=== PATIENT | female | born 1960 | race Caucasian/White ===

== ENCOUNTER 2017-06-01 13:46 | Inpatient (IN) | payer OTHER ==
--- NOTE | 2017-06-01 14:10 | ER Document Report ---
ED General - General Stated Complaint: RIGHT HIP PAIN NO INJURY Time Seen by Provider: 06/01/17 14:05 Mode of Arrival: Stretcher Information source: Patient Notes: This is a 57-year-old female with a history of coronary artery disease ([place] in the past), TIA 2, cervical cancer (status post chemo and radiation in [place]). Patient is brought in by EMS because of right arm numbness, blurred vision and a 3/5 headache which started at 10 AM. Patient states that the arm numbness and the blurred vision have since resolved. Patient also notes that she has had atraumatic right hip pain for the past month and that she has been dragging her right leg. When asked if she has weakness of the right lower extremity she again says that she has been "dragging it". She is not able to specifically say whether the weakness is solely due to the pain or something else. Patient denies any fever, chills, nausea vomiting. Patient denies any recent falls. TRAVEL OUTSIDE OF THE [place] IN LAST 30 DAYS: No - HPI Onset: Just prior to arrival Onset/Duration: Gradual Quality of pain: No pain Severity: None Pain Level: Denies Associated symptoms: Other - Right hip pain. denies: Chest pain, Fever, Shortness of breath Exacerbated by: Movement Relieved by: Denies Similar symptoms previously: No Recently seen / treated by doctor: No - Related Data Allergies/Adverse Reactions: No Known Allergies Allergy (Verified 08/17/16 15:01) Past Medical History - General Information source: Patient - Social History Smoking Status: Former Smoker Cigarette use (# per day): No Chew tobacco use (# tins/day): No Frequency of alcohol use: None Drug Abuse: None Lives with: Family Family History: Reviewed & Not Pertinent, Arthritis, CAD, Hypertension, Malignancy, Thyroid Disfunction, Other - alzheimers Patient has suicidal ideation: No Patient has homicidal ideation: No - Past Medical History Cardiac Medical History: Reports: Hx Coronary Artery Disease, Hx Heart Attack, Hx Hypercholesterolemia, Hx Hypertension Pulmonary Medical History: Denies: Hx Asthma, Hx COPD Neurological Medical History: Reports: Hx Cerebrovascular Accident - tia - on ASA now Endocrine Medical History: Denies: Hx Diabetes Mellitus Type 1, Hx Diabetes Mellitus Type 2 Malignancy Medical History: Reports: Hx Cervical Cancer GI Medical History: Reports: Hx Gastroesophageal Reflux Disease Musculoskeltal Medical History: Reports Hx Musculoskeletal Trauma Traumatic Medical History: Reports: Hx Fractures Past Surgical History: Reports: Hx Cardiac Catheterization, Hx Gynecologic Surgery - CERVICAL Ca, Hx Orthopedic Surgery - R ankle, L knee - Immunizations Immunizations up to date: Yes Hx Diphtheria, Pertussis, Tetanus Vaccination: Yes - 10/03/13 Review of Systems - Review of Systems Constitutional: denies: Chills, Fever EENT: No symptoms reported Cardiovascular: No symptoms reported Respiratory: No symptoms reported Gastrointestinal: No symptoms reported Genitourinary: No symptoms reported Female Genitourinary: No symptoms reported Musculoskeletal: No symptoms reported Skin: No symptoms reported Hematologic/Lymphatic: No symptoms reported Neurological/Psychological: No symptoms reported Physical Exam - Vital signs Vitals: Temp Pulse Resp BP Pulse Ox 98.3 F 95 20 146/68 H 97 06/01/17 14:00 06/01/17 14:00 06/01/17 14:00 06/01/17 14:00 06/01/17 14:00 Notes: Physical exam: GENERAL: 57-year-old female, alert and oriented 3, appears well. She is smiling and joking in the emergency room. Blood pressure once 46/68, pulse 95, respiratory rate 16 O2 sat 98% on room air. HEAD: Atraumatic, normocephalic. EYES: Pupils equal round and reactive to light, extraocular movements intact, sclera anicteric, conjunctiva are normal. ENT: TMs normal, nares patent, oropharynx clear without exudates. Moist mucous membranes. NECK: Normal range of motion, supple without ovious mass or JVD. LUNGS: Breath sounds clear to auscultation bilaterally and equal. No wheezes rales or rhonchi. HEART: Regular rate and rhythm without murmurs, rubs or gallops. ABDOMEN: Soft, normoactive bowel sounds. No tenderness to palpation. No guarding, no rebound. No masses appreciated. EXTREMITIES: Normal range of motion, no pitting or edema. No clubbing or cyanosis. NEUROLOGICAL: Patient is alert and oriented 3, she is alert and keenly responsive, she does know the month and age, she is able to close and open her eyes and make a fist on command, her horizontal gaze is normal, her visual sampson are intact, there is no facial palsy, motor to the upper extremities show no drift bilaterally, patient does have some drift but does not touch the bed on the right, no drift on the left lower leg, finger to nose is perfect bilaterally, there is no sensory discrepancies or sensory loss, patient is a very good job and picture description, object naming and sentence reading, there is no dysarthria (her speech is clear when naming objects), there is no extinction. Her NIH is therefore 1 based upon a weakness. PSYCH: Normal mood, normal affect. SKIN: Warm, Dry, normal turgor, no rashes or lesions noted. Course - Re-evaluation Re-evalutation: 06/01/17 14:05 NIH score is 1 (due to weakness of the right leg). It is unclear at this point if the weakness is due to pain or to weakness itself. It is also unclear the time of onset given that the patient clearly states that she has been dragging her right foot for the past month. Given this history and the rest of her NIH score, patient does not meet criteria for thrombolytics. - Vital Signs Vital signs: Temp Pulse Resp BP Pulse Ox 97.9 F 86 20 142/73 H 97 06/01/17 20:04 06/01/17 20:04 06/01/17 20:04 06/01/17 20:04 06/01/17 20:04 - Laboratory Result Diagrams: 06/01/17 14:30 06/01/17 14:30 Laboratory results interpreted by me: 06/01/17 06/01/17 14:30 14:30 RBC 3.36 L Hgb 10.3 L Hct 29.5 L RDW 15.5 H Seg Neutrophils % 85.1 H Lymphocytes % 6.3 L Potassium 3.0 L* Creatinine 1.47 H Est GFR ( Amer) 44 L Est GFR (Non-Af Amer) 36 L Glucose 136 H Direct Bilirubin 0.5 H Creatine Kinase < 20 L - EKG Interpretation by Sd EKG shows normal: Sinus rhythm Rate: Normal Rhythm: NSR - EKG shows normal sinus rhythm with a ventricular rate of 99, nonspecific ST changes V4 V5 V6, there is LVH pattern. Critical Care Note - Critical Care Note Total time excluding time spent on procedures (mins): 60 Discharge - Discharge Clinical Impression: Hypokalemia TIA (transient ischemic attack) Qualifiers: Transient cerebral ischemia type: unspecified Qualified Code(s): G45.9 - Transient cerebral ischemic attack, unspecified Condition: Stable Disposition: ADMITTED INPATIENT Admitting Provider: Hospitalist - Dr Hardy Unit Admitted: IMCU
[2017-06-01] MEDS ORDERED: OXYCODONE-ACETAMINOPHEN 5-325 MG TABLET PO ONE (14:33)
[2017-06-01 14:43] LABS: ABSOLUTE EOSINOPHILS # (AUTO) 0.2 10^3/uL (0.0-0.6); ABSOLUTE LYMPHOCYTES (AUTO) 0.5 10^3/uL (0.5-4.7); ABSOLUTE MONOCYTES (AUTO) 0.4 10^3/uL (0.1-1.4); ABSOLUTE NEUT (AUTO) 6.6 10^3/uL (1.7-8.2); BASOPHILS % (AUTO) 0.6 % (0-2); EOSINOPHILS % (AUTO) 2.3 % (0-6); HEMATOCRIT 29.5 % (36.0-47.0); HEMOGLOBIN 10.3 g/dL (12.0-15.5); HGB HCT DIFFERENCE 1.4; LYMPHOCYTES % (AUTO) 6.3 % (13-45); MEAN CORPUSCULAR HEMOGLOBIN 30.6 pg (27.0-33.4); MEAN CORPUSCULAR HGB CONC 34.9 g/dL (32.0-36.0); MEAN CORPUSCULAR VOLUME 88 fl (80-97); MONOCYTES % (AUTO) 5.7 % (3-13); RED BLOOD COUNT 3.36 10^6/uL (3.72-5.28); RED CELL DISTRIBUTION WIDTH 15.5 % (11.5-14.0); SEGMENTED NEUTROPHILS % (AUTO) 85.1 % (42-78); WHITE BLOOD COUNT 7.8 10^3/uL (4.0-10.5)
--- NOTE | 2017-06-01 14:59 | RADIOLOGY REPORT (SQ) ---
EXAM DESCRIPTION: CT HEAD WITHOUT COMPLETED DATE/TIME: 06/01/2017 2:52 pm REASON FOR STUDY: right arm weakness COMPARISON: 06/19/2015 TECHNIQUE: Axial images acquired through the brain without intravenous contrast. Images reviewed wi th bone, brain and subdural windows. Images stored on PACS. All CT scanners at this facility use dose modulation, iterative reconstruction, and/or weight based d osing when appropriate to reduce radiation dose to as low as reasonably achievable (ALARA). [facility]: Dose Right [facility]: CareDose [facility]: Dose Right [facility]: Teradose 4D [facility]: Smart Close RADIATION DOSE: Up-to-date CT equipment and radiation dose reduction techniques were employed. CTDIv ol: 64.6 mGy. DLP: 1163 mGy-cm. mGy. LIMITATIONS: None. FINDINGS: VENTRICLES: Normal size and contour. CEREBRUM: No masses. No hemorrhage. No midline shift. No evidence for acute infarction. Normal gra y/white matter differentiation. No areas of low density in the white matter. CEREBELLUM: No masses. No hemorrhage. No alteration of density. No evidence for acute infarction. EXTRAAXIAL SPACES: No fluid collections. No masses. ORBITS AND GLOBE: No intra- or extraconal masses. Normal contour of globe without masses. CALVARIUM: No fracture. PARANASAL SINUSES: No fluid or mucosal thickening. SOFT TISSUES: No mass or hematoma. OTHER: No other significant finding. IMPRESSION: NORMAL BRAIN CT WITHOUT CONTRAST. COMMENT: Quality ID # [id number]: Final reports with documentation of one or more dose reduction techniques (e.g., Automated exposure control, adjustment of the mA and/or kV according to patient size, use of iterative reconstruction technique) TECHNICAL DOCUMENTATION: JOB ID: [id number] [employer]- All Rights Reserved
[2017-06-01 15:04] LABS: ALANINE AMINOTRANSFERASE 15 U/L (9-52); ALKALINE PHOSPHATASE 116 U/L (38-126); ANION GAP 17 (5-19); ASPARTATE AMINO TRANSFERASE 16 U/L (14-36); BILIRUBIN,DIRECT 0.5 mg/dL (0.0-0.4); BILIRUBIN,TOTAL 0.9 mg/dL (0.2-1.3); BLOOD UREA NITROGEN 15 mg/dL (7-20); CALCIUM 9.9 mg/dL (8.4-10.2); CARBON DIOXIDE 23 mmol/L (22-30); CHLORIDE 101 mmol/L (98-107); CREATININE RESULT 1.47 mg/dL (0.52-1.25); GLUCOSE 136 mg/dL (75-110); SODIUM 140.6 mmol/L (137-145); TOTAL PROTEIN 8.1 g/dL (6.3-8.2)
[2017-06-01 15:05] LABS: CREATINE KINASE < 20 U/L (30-135)
--- NOTE | 2017-06-01 15:09 | RADIOLOGY REPORT (SQ) ---
EXAM DESCRIPTION: CHEST SINGLE VIEW COMPLETED DATE/TIME: 06/01/2017 3:01 pm REASON FOR STUDY: weakness COMPARISON: 09/10/2016 EXAM PARAMETERS: NUMBER OF VIEWS: One view. TECHNIQUE: Single frontal radiographic view of the chest acquired. RADIATION DOSE: NA LIMITATIONS: None. FINDINGS: LUNGS AND PLEURA: No opacities, masses or pneumothorax. No pleural effusion. MEDIASTINUM AND HILAR STRUCTURES: No masses. Contour normal. HEART AND VASCULAR STRUCTURES: Heart normal in size. Normal vasculature. BONES: No acute findings. HARDWARE: None in the chest. OTHER: No other significant finding. IMPRESSION: NO ACUTE RADIOGRAPHIC FINDING IN THE CHEST. TECHNICAL DOCUMENTATION: JOB ID: [id number]
--- NOTE | 2017-06-01 15:10 | RADIOLOGY REPORT (SQ) ---
EXAM DESCRIPTION: HIP RIGHT AP/LATERAL COMPLETED DATE/TIME: 06/01/2017 3:01 pm REASON FOR STUDY: right hip pain COMPARISON: None. NUMBER OF VIEWS: Two views. TECHNIQUE: AP pelvis and additional frog-leg view of the right hip. LIMITATIONS: None. FINDINGS: MINERALIZATION: Normal. RIGHT HIP: Moderate osteoarthritis. No fracture or dislocation. No worrisome bone lesions. LEFT HIP: Mild to moderate osteoarthritis. No fracture or dislocation. No worrisome bone lesions. PUBIS AND ISCHIUM: No fracture. PELVIS: No fracture. SACRUM: No fracture or dislocation. No worrisome bone lesions. LOWER LUMBAR SPINE: Degenerative change without fracture. SOFT TISSUES: No findings. OTHER: No other significant finding. IMPRESSION: OSTEOARTHRITIS OF THE RIGHT GREATER THAN LEFT HIP. NO ACUTE OSSEOUS ABNORMALITY IDENTIF IED. TECHNICAL DOCUMENTATION: JOB ID: [id number] [employer] All Rights Reserved
[2017-06-01 15:21] LABS: CREATINE KINASE MB < 0.22 ng/mL (<4.55); TROPONIN I < 0.012 ng/mL
[2017-06-01] MEDS ORDERED: POTASSIUM CHLORIDE 20 MEQ/15 ML UDCUP PO ONE (15:49)
[2017-06-01] MEDS ORDERED: MAGNESIUM HYDROXIDE SUSP 30 ML UDCUP PO PRN (17:29)
[2017-06-01] MEDS ORDERED: ONDANSETRON HCL INJ/PF 4 MG/2 ML SDV IV PRN (17:29)
[2017-06-01] MEDS ORDERED: DOCUSATE SODIUM 100 MG CAPSULE PO PRN (17:29)
[2017-06-01] MEDS ORDERED: ACETAMINOPHEN 325 MG TABLET PO PRN (17:29)
[2017-06-01] MEDS ORDERED: TEMAZEPAM 15 MG CAPSULE PO PRN (17:29)
--- NOTE | 2017-06-01 17:29 | PDOC H&P ---
History of Present Illness Admission Date/PCP: 06/01/17 16:27 [facility] Patient complains of: Pain, weakness and numbness. History of Present Illness: GURINDER SMART is a 57 year old female who has a prior history of transient ischemic attack 2. In 2012 the patient had a TIA followed by a second event. The events were 1 month apart. She was taking Plavix but has not recently been taking Plavix or aspirin. The patient also notes that she had a myocardial infarction in 2012. She was treated at [facility]. She underwent cardiac catheterization that showed a 50% blockage to 1 of her major arteries. No stent was placed. She is currently not on any cardiac medications. This morning the patient woke up and ate a biscuit at around 730. At 930 she started to feel numb from her right foot to her right hip. This then progressed up to her right hand which progressed to her right shoulder. At the same time the patient started to experience severe pain in her leg. The pain would start at the top of her ankle and then shoot upward into her knee and then into her hip. She also started having pain in her shoulder, arm and hand. The symptoms are on the right. Again, this is associated with numbness. The patient states that her symptoms have been going on for at least one month. Today, her symptoms came on faster and were more severe. She was worried that she was having a severe stroke and that is what prompted her to come to the emergency department. On review of systems she has not had any fevers, chills or night sweats. She states that she is not taking care of herself well. She is not eating well and she may be losing weight but she is not sure. She does get intermittent blurry vision when she is in severe pain. She has no pain or burning in her ears. She has no trouble swallowing or pain with swallowing. She denies shortness of breath or cough. She has not had any recent upper respiratory tract infections. She denies chest pain and palpitations. She denies nausea or vomiting. She has no abdominal pain. Occasionally, she will have diarrhea when she eats something sweet. She denies constipation. She has no new rashes but she does admit to some mosquito bites. She has no swelling of her lower extremities. She has no orthopnea or PND. Past Medical History Cardiac Medical History: Reports: Coronary Artery Disease, Myocardial Infarction , Hyperlipidema, Hypertension Pulmonary Medical History: Denies: Asthma, Chronic Obstructive Pulmonary Disease (COPD) Neurological Medical History: Reports: Other - TIA 2 in 2012. Endocrine Medical History: Denies: Diabetes Mellitus Type 1, Diabetes Mellitus Type 2 Malignancy Medical History: Reports: Cervical Cancer - Patient is status post chemo and radiation and is in remission. GI Medical History: Reports: Gastroesophageal Reflux Disease Past Surgical History Past Surgical History: Reports: Cardiac Catheterization, Orthopedic Surgery - R ankle, L knee, Other - Orthosis surgeries include right ankle and left knee. Social History Smoking Status: Former Smoker Frequency of Alcohol Use: None Hx Recreational Drug Use: No Drugs: None Hx Prescription Drug Abuse: No - Advance Directive Surrogate healthcare decision maker:: The patient would like her twin sister Barbara Artis to be her decision maker should she become incapacitated. Her sister lives in [place] and can be reached at area code [phone]. Family History Family History: Reviewed & Not Pertinent, Arthritis, CAD, Hypertension, Malignancy, Thyroid Disfunction, Other - alzheimers Parental Family History Reviewed: Yes - Both parents had hypertension and Alzheimer's. Father had bone marrow can Children Family History Reviewed: Yes Sibling(s) Family History Reviewed.: Yes Medication/Allergy Allergies/Adverse Reactions: No Known Allergies Allergy (Verified 08/17/16 15:01) Review of Systems Constitutional: ABSENT: chills, fever(s), headache(s), weight gain, weight loss Eyes: PRESENT: visual disturbances Ears: ABSENT: hearing changes Cardiovascular: ABSENT: chest pain, dyspnea on exertion, edema, orthropnea, palpitations Respiratory: ABSENT: cough, hemoptysis Gastrointestinal: ABSENT: abdominal pain, constipation, diarrhea, hematemesis, hematochezia, nausea, vomiting Genitourinary: PRESENT: as per HPI Musculoskeletal: PRESENT: as per HPI Integumentary: PRESENT: as per HPI Neurological: PRESENT: abnormal gait, focal weakness Psychiatric: ABSENT: anxiety, depression, homidical ideation, suicidal ideation Physical Exam Vital Signs: Temp Pulse Resp BP Pulse Ox 98.3 F 95 11 L 153/101 H 98 06/01/17 14:00 06/01/17 14:00 06/01/17 16:02 06/01/17 16:02 06/01/17 16:02 Additional comments: The patient appears to be older than her stated age of 57. She is somewhat disheveled in appearance. Her facial appearance is normal. She does have bad dentition. Her lips are normal. Her oropharynx shows slightly dry mucous membranes. Her neck is supple with full range of motion. Thyroid is nonpalpable. She does not have any JVD. She does not have any cervical lymphadenopathy. No bruits were appreciated. Her lung exam demonstrates clear lung sampson anteriorly, posteriorly and bilaterally. The cardiac exam is regular. I do not appreciate any murmurs, gallops or rubs. The abdomen is soft and flat. Bowel sounds are present in all 4 quadrants. The patient does not have hepatosplenomegaly. She does not have hernias, masses, guarding or rebound. The patient's lower extremities are warm to touch without pitting edema. The patient's skin exam is normal without lesions or rashes. Skin is warm dry and intact. Neurologically the patient's cognition and mentation are completely normal. She has excellent recall of her medical history. She has normal short-term and long-term memory. Cranial nerves II through XII are intact. The patient's upper extremity extremities demonstrate 5 out of 5 strength. Lower extremities demonstrate 4-5 strength in the right leg and 5/5 strength in the left leg. The patient's weakness appears to be secondary to pain. I was unable to get the patient out of the gurney to ambulate or check a Romberg. Sensation is intact and DTRs are intact. Patient has significant tenderness over the right trochanter. Results Impressions: Chest X-Ray 06/01/17 14:11 IMPRESSION: NO ACUTE RADIOGRAPHIC FINDING IN THE CHEST. Head CT 06/01/17 14:11 IMPRESSION: NORMAL BRAIN CT WITHOUT CONTRAST. Hip/Pelvis X-Ray 06/01/17 14:11 IMPRESSION: OSTEOARTHRITIS OF THE RIGHT GREATER THAN LEFT HIP. NO ACUTE OSSEOUS ABNORMALITY IDENTIFIED. Assessment & Plan - Diagnosis (1) TIA (transient ischemic attack) Qualifiers: Transient cerebral ischemia type: unspecified Qualified Code(s): G45.9 - Transient cerebral ischemic attack, unspecified Is this a current diagnosis for this admission?: Yes Plan: It is possible that some of the patient's symptoms could be secondary to a transient ischemic attack, however, I think this is unlikely. The patient is certainly at risk for TIA and stroke and she will be admitted for observation with stroke protocol. I will order carotid Dopplers and an echocardiogram. At this point time since her symptoms are improving I will not order an MRI of the brain. I will place the patient on aspirin and simvastatin. The patient has not recently been taking any antiplatelet therapy and I think a full dose of aspirin will suffice. Simvastatin will also be in expensive and the patient should have access to these medications quite easily. (2) Anemia Qualifiers: Anemia type: unspecified type Qualified Code(s): D64.9 - Anemia, unspecified Is this a current diagnosis for this admission?: Yes Plan: It is unclear why this patient is anemic. Her MCV is normal. I suspect anemia of chronic disease and possibly component of renal failure. I will check an anemia panel. (3) Acute kidney failure Qualifiers: Acute renal failure type: unspecified Qualified Code(s): N17.9 - Acute kidney failure, unspecified Is this a current diagnosis for this admission?: Yes Plan: I suspect that the patient has chronic kidney disease at baseline. I cannot exclude acute renal injury or kidney failure. We will need to avoid nephrotoxins. The patient appears euvolemic and I will not start intravenous fluids. Looking back in the medical record I do not find any old creatinine values for comparison. (4) Hip pain, acute Qualifiers: Laterality: right Qualified Code(s): M25.551 - Pain in right hip Is this a current diagnosis for this admission?: Yes Plan: The patient may have trochanteric bursitis. Pelvic and hip films did not demonstrate a fracture. The differential also includes osteoarthritis of the right hip. I will have the patient evaluated by physical therapy and orthopedic surgery. She may benefit from an injection into the bursa. For pain control I would like to avoid nonsteroidal anti-inflammatory drugs secondary to the patient's underlying anemia and renal failure. Therefore, pain control will be with tramadol or Percocet if pain is severe. (5) Dyslipidemia Is this a current diagnosis for this admission?: No Plan: Lipids will be repeated in the morning. I was able to find an old cholesterol panel from 2016. LDL was 80. Patient would benefit from low-dose statin therapy due to known coronary artery disease and previous TIA. We will choose simvastatin due to cost and financial issues. (6) Coronary artery disease Is this a current diagnosis for this admission?: Yes Plan: We will initiate therapy with aspirin and simvastatin. I will also add a low- dose beta-jorge. (7) Accelerated hypertension Is this a current diagnosis for this admission?: Yes Plan: I will be adding a beta-jorge since the patient has underlying coronary artery disease. We will adjust therapy as needed. (8) DVT prophylaxis Plan: Mechanical: SCDs. - Time Time Spent: 50 to 70 Minutes Within: within 48 hours - Plan Summary Plan Summary: The patient will be admitted to observation. She will be put on TIA/stroke protocol. During her hospitalization we need to further evaluate her anemia. We need to follow her renal function. She will be started on therapy for cerebrovascular disease, coronary artery disease and hypertension. We will check a lipid panel in the morning. The patient will need to be evaluated by physical therapy and also orthopedic surgery service secondary to her hip pain which appears to be the reason for the numbness and weakness of the right leg. Stroke is less likely.
[2017-06-01] MEDS ORDERED: HYDRALAZINE HCL INJ/PF 20 MG/1 ML SDV IV PRN (17:53)
[2017-06-01] MEDS ORDERED: TRAMADOL HCL 50 MG TABLET PO PRN (17:56)
--- NOTE | 2017-06-01 18:25 | EKG REPORT ---
SEVERITY:- ABNORMAL ECG - SINUS RHYTHM REPOL ABNRM SUGGESTS ISCHEMIA, DIFFUSE LEADS BORDERLINE PROLONGED QT INTERVAL : Confirmed by: Jm Birch MD 01-Jun-2017 18:25:14
[2017-06-01] MEDS ORDERED: ASPIRIN 325 MG TABLET, ENT COATED PO ONE (18:30)
[2017-06-01 18:43] LABS: PROTHROMBIN TIME 14.8 SEC (11.4-15.4)
[2017-06-01 18:44] LABS: PARTIAL THROMBOPLASTIN TIME 33.6 SEC (23.5-35.8)
[2017-06-01 20:04] LABS: FOLATE 9.76 ng/mL (>2.76)
[2017-06-01] MEDS: METOPROLOL TARTRATE 25 MG TABLET PO SCH (21:37)
[2017-06-01] MEDS: SIMVASTATIN 10 MG TABLET PO SCH (21:38)
[2017-06-01] MEDS: OXYCODONE-ACETAMINOPHEN 5-325 MG TABLET PO PRN (21:39)
[2017-06-02 05:35] LABS: ABSOLUTE EOSINOPHILS # (AUTO) 0.3 10^3/uL (0.0-0.6); ABSOLUTE LYMPHOCYTES (AUTO) 0.6 10^3/uL (0.5-4.7); ABSOLUTE MONOCYTES (AUTO) 0.5 10^3/uL (0.1-1.4); ABSOLUTE NEUT (AUTO) 4.3 10^3/uL (1.7-8.2); BASOPHILS % (AUTO) 0.7 % (0-2); EOSINOPHILS % (AUTO) 4.4 % (0-6); HEMATOCRIT 26.1 % (36.0-47.0); HEMOGLOBIN 9.1 g/dL (12.0-15.5); HGB HCT DIFFERENCE 1.2; LYMPHOCYTES % (AUTO) 10.2 % (13-45); MEAN CORPUSCULAR HEMOGLOBIN 30.9 pg (27.0-33.4); MEAN CORPUSCULAR HGB CONC 34.7 g/dL (32.0-36.0); MEAN CORPUSCULAR VOLUME 89 fl (80-97); MONOCYTES % (AUTO) 8.7 % (3-13); RED BLOOD COUNT 2.93 10^6/uL (3.72-5.28); RED CELL DISTRIBUTION WIDTH 15.4 % (11.5-14.0); WHITE BLOOD COUNT 5.7 10^3/uL (4.0-10.5)
[2017-06-02 05:44] LABS: ALANINE AMINOTRANSFERASE 14 U/L (9-52); ALBUMIN 3.4 g/dL (3.5-5.0); ALKALINE PHOSPHATASE 96 U/L (38-126); ANION GAP 11 (5-19); ASPARTATE AMINO TRANSFERASE 12 U/L (14-36); BILIRUBIN,DIRECT 0.4 mg/dL (0.0-0.4); BILIRUBIN,TOTAL 0.5 mg/dL (0.2-1.3); BLOOD UREA NITROGEN 18 mg/dL (7-20); CALCIUM 9.6 mg/dL (8.4-10.2); CARBON DIOXIDE 27 mmol/L (22-30); CHLORIDE 103 mmol/L (98-107); CHOLESTEROL 145.78 mg/dL (0-200); CREATININE RESULT 1.57 mg/dL (0.52-1.25); Direct HDL 32 mg/dL (>40); GLUCOSE 105 mg/dL (75-110); MAGNESIUM 1.9 mg/dL (1.6-2.3); POTASSIUM 3.4 mmol/L (3.6-5.0); SODIUM 140.9 mmol/L (137-145); TOTAL PROTEIN 6.7 g/dL (6.3-8.2); TRIGLYCERIDES 180 mg/dL (<150)
[2017-06-02 05:55] LABS: DIRECT LDL 80 mg/dL (<100)
[2017-06-02] MEDS ORDERED: CYANOCOBALAMIN (VITAMIN B-12) INJ 1000 MCG/1 ML VIAL IM ONE (08:14)
[2017-06-02] MEDS ORDERED: NORMAL SALINE 1000 ML 1,000 ML IV PRN (08:21)
[2017-06-02] MEDS: FERROUS SULFATE 325 MG TABLET PO SCH ×2 (08:59→17:29)
[2017-06-02] MEDS ORDERED: ASPIRIN 325 MG TABLET, ENT COATED PO SCH (10:00)
--- NOTE | 2017-06-02 10:00 | Physician Advisory Note ---
Physician Advisor ProgressNote .: Pursuant to the plan for [facility], I have reviewed the medical record for this patient. Physician Advisor Statement: Please consider documentin. If pt has evidence of "Hypertensive emergency", then state this term, making sure pt has had BPs >180/120 documented, & also document associated s/s. - "Accelerated HTN" no longer is coded as anything but "essential HTN". (In this case, however, unless findings mentioned above are documented, it sounds like "essential HTN" is what pt has.) Thanks! CK
[2017-06-02] MEDS: METOPROLOL TARTRATE 25 MG TABLET PO SCH ×2 (10:38→22:07)
[2017-06-02] MEDS: POTASSIUM CHLORIDE 20 MEQ/15 ML UDCUP PO SCH (10:38)
--- NOTE | 2017-06-02 12:18 | RADIOLOGY REPORT (SQ) ---
EXAM DESCRIPTION: CAROTID DOPPLER COMPLETED DATE/TIME: 06/02/2017 12:00 pm REASON FOR STUDY: TIA COMPARISON: 01/11/[address] brain 01/29/2017 TECHNIQUE: Grayscale ultrasound, Doppler velocity and spectra, and color Doppler images acquired of the extra-cranial carotid and vertebral arteries. Images stored on PACS. LIMITATIONS: None. FINDINGS: RIGHT CAROTID CCA Velocities: Within normal limits. ICA Velocities Peak systolic 1.45 m/s. End diastolic 0.61 m/s. Proximal ICA/CCA peak systolic ratio 1.8. Non calcific plaque at the right carotid bifurcation. There is turbulent flow and increased end-delgado tolic velocity suggesting 50 to 69% diameter narrowing. Next LEFT CAROTID CCA Velocities: Within normal limits. ICA Velocities Peak systolic 0.94 m/s. End diastolic 0.36 m/s. Proximal ICA/CCA peak systolic ratio 1.2. Non calcific plaque at the left carotid bifurcation. Normal velocities suggest against any flow sign ificant stenosis. VERTEBRAL ARTERIES: Antegrade flow. Normal waveforms. SUBCLAVIAN ARTERIES: Not examined OTHER: No other significant finding. IMPRESSION: Turbulent flow with increased peak systolic and end-diastolic velocities at the right pr oximal ICA suggesting 50 to 69% diameter narrowing. No velocity findings to suggest left proximal ICA stenosis. COMMENT: Quality ID #[id number]: Velocity criteria are extrapolated from the diameter data as defined by t he Society of Radiologists in Ultrasound Consensus Conference. Radiology 2003: 229; 340-346. TECHNICAL DOCUMENTATION: JOB ID: [id number] [employer]- All Rights Reserved
--- NOTE | 2017-06-02 15:12 | PDOC CONSULTATION ---
History of Present Illness Admission Date/PCP: 06/01/17 17:29 [facility] History of Present Illness: GURINDER SMART is a 57 year old female with extensive medical history presented to the emergency room yesterday on 06/01/17 with severe right hip pain. Patient states the pain radiated down her foot and also up into her right upper extremity. She states it has been ongoing for over the past few months but worsened yesterday. Patient denies trauma but was unable to weight-bear without assistance. She states her pain was 5/5 on admission but that has improved with heat and Percocet. But she is avoiding taking the Percocet due to its ill effects. Patient also complains of constipation and occasional lightheaded and dizziness. Past Medical History Cardiac Medical History: Reports: Coronary Artery Disease, Myocardial Infarction , Hyperlipidema, Hypertension Pulmonary Medical History: Denies: Asthma, Chronic Obstructive Pulmonary Disease (COPD) Neurological Medical History: Reports: Other - TIA 2 in 2012. Endocrine Medical History: Denies: Diabetes Mellitus Type 1, Diabetes Mellitus Type 2 Malignancy Medical History: Reports: Cervical Cancer GI Medical History: Reports: Gastroesophageal Reflux Disease Past Surgical History Past Surgical History: Reports: Cardiac Catheterization, Orthopedic Surgery - R ankle, L knee, Other - Orthosis surgeries include right ankle and left knee. Social History Lives with: Family Smoking Status: Former Smoker Frequency of Alcohol Use: None Hx Recreational Drug Use: No Drugs: None Hx Prescription Drug Abuse: No Family History Family History: Reviewed & Not Pertinent, Arthritis, CAD, Hypertension, Malignancy, Thyroid Disfunction, Other - alzheimers Parental Family History Reviewed: No Children Family History Reviewed: No Sibling(s) Family History Reviewed.: No Medication/Allergy Home Medications: No Home Medications 06/02/17 Allergies/Adverse Reactions: No Known Allergies Allergy (Verified 08/17/16 15:01) Review of Systems Constitutional: PRESENT: fatigue. ABSENT: chills, fever(s), headache(s), weight gain, weight loss Eyes: PRESENT: visual disturbances Ears: ABSENT: hearing changes Cardiovascular: ABSENT: chest pain, dyspnea on exertion, edema, orthropnea, palpitations Respiratory: ABSENT: cough, hemoptysis Gastrointestinal: PRESENT: bloating. ABSENT: abdominal pain, constipation, diarrhea, hematemesis, hematochezia, nausea, vomiting Genitourinary: ABSENT: dysuria, hematuria Musculoskeletal: PRESENT: as per HPI Integumentary: ABSENT: rash, wounds Neurological: ABSENT: abnormal gait, abnormal speech, confusion, dizziness, focal weakness, syncope Psychiatric: ABSENT: anxiety, depression, homidical ideation, suicidal ideation Endocrine: ABSENT: cold intolerance, heat intolerance, menstrual abnormalities, polydipsia, polyuria Hematologic/Lymphatic: ABSENT: easy bleeding, easy bruising, lymphadenopathy Physical Exam Vital Signs: Temp Pulse Resp BP Pulse Ox 98.6 F 67 18 97/47 L 100 06/02/17 11:41 06/02/17 14:00 06/02/17 12:00 06/02/17 12:00 06/02/17 12:00 Intake & Output 06/01/17 06/02/17 06/03/17 06:59 06:59 06:59 Intake Total 328 535 Output Total 0 100 Balance 328 435 Weight 76.7 kg General appearance: PRESENT: no acute distress, disheveled - Patient appears older than stated age., well-developed, well-nourished Head exam: PRESENT: atraumatic, normocephalic Eye exam: PRESENT: conjunctiva pink, EOMI, PERRLA. ABSENT: scleral icterus Ear exam: PRESENT: normal external ear exam Mouth exam: PRESENT: moist, tongue midline Teeth exam: PRESENT: poor dentation Neck exam: PRESENT: full ROM. ABSENT: carotid bruit, JVD, lymphadenopathy, thyromegaly Respiratory exam: PRESENT: unlabored Cardiovascular exam: PRESENT: RRR. ABSENT: diastolic murmur, rubs, systolic murmur Pulses: PRESENT: normal dorsalis pedis pul, +2 pedal pulses bilateral Vascular exam: PRESENT: normal capillary refill GI/Abdominal exam: PRESENT: normal bowel sounds, soft, other - Mild tenderness along the right lower quadrant.. ABSENT: distended, guarding, mass, organolmegaly, rebound, tenderness Rectal exam: PRESENT: deferred Musculoskeletal exam: PRESENT: other - Right lower extremity: Weakness with straight leg raise against resistance. Pain with flexion, adduction internal rotation. No pain with external rotation. Intact plantar flexion/ dorsiflexion. No sensory deficits. EHL, tibialis anterior, gastroc 5/5. No calf tenderness. Negative straight leg raise. Neurological exam: PRESENT: alert, awake, oriented to person, oriented to place , oriented to time, oriented to situation, CN II-XII grossly intact. ABSENT: motor sensory deficit Psychiatric exam: PRESENT: appropriate affect, normal mood. ABSENT: homicidal ideation, suicidal ideation Skin exam: PRESENT: dry, intact, warm. ABSENT: cyanosis, rash Results Laboratory Results: 06/02/17 04:43 06/02/17 04:43 06/01/17 06/01/17 06/02/17 18:25 18:25 04:43 WBC RBC Hgb Hct MCV MCH MCHC RDW Plt Count Seg Neutrophils % Lymphocytes % Monocytes % Eosinophils % Basophils % Absolute Neutrophils Absolute Lymphocytes Absolute Monocytes Absolute Eosinophils Absolute Basophils Retic Count (auto) 2.58 Absolute Retic 0.080 Sodium 140.9 Potassium 3.4 L Chloride 103 Carbon Dioxide 27 Anion Gap 11 BUN 18 Creatinine 1.57 H Est GFR ( Amer) 41 L Est GFR (Non-Af Amer) 34 L Glucose 105 Calcium 9.6 Magnesium 1.9 Iron 31.2 L TIBC 227 L % Saturation 14 Ferritin 644.00 H 545.00 H Total Bilirubin 0.5 AST 12 L ALT 14 Alkaline Phosphatase 96 Total Protein 6.7 Albumin 3.4 L Triglycerides 180 H Cholesterol 145.78 LDL Cholesterol Direct 80 VLDL Cholesterol 36.0 H HDL Cholesterol 32 L Vitamin B12 213.0 L Folate 9.76 06/02/17 04:43 WBC 5.7 RBC 2.93 L Hgb 9.1 L Hct 26.1 L MCV 89 MCH 30.9 MCHC 34.7 RDW 15.4 H Plt Count 299 Seg Neutrophils % 76.0 Lymphocytes % 10.2 L Monocytes % 8.7 Eosinophils % 4.4 Basophils % 0.7 Absolute Neutrophils 4.3 Absolute Lymphocytes 0.6 Absolute Monocytes 0.5 Absolute Eosinophils 0.3 Absolute Basophils 0.0 Retic Count (auto) Absolute Retic Sodium Potassium Chloride Carbon Dioxide Anion Gap BUN Creatinine Est GFR ( Amer) Est GFR (Non-Af Amer) Glucose Calcium Magnesium Iron TIBC % Saturation Ferritin Total Bilirubin AST ALT Alkaline Phosphatase Total Protein Albumin Triglycerides Cholesterol LDL Cholesterol Direct VLDL Cholesterol HDL Cholesterol Vitamin B12 Folate 06/01/17 18:25 Troponin I < 0.012 Impressions: Chest X-Ray 06/01/17 14:11 IMPRESSION: NO ACUTE RADIOGRAPHIC FINDING IN THE CHEST. Head CT 06/01/17 14:11 IMPRESSION: NORMAL BRAIN CT WITHOUT CONTRAST. Hip/Pelvis X-Ray 06/01/17 14:11 IMPRESSION: OSTEOARTHRITIS OF THE RIGHT GREATER THAN LEFT HIP. NO ACUTE OSSEOUS ABNORMALITY IDENTIFIED. Carotid Doppler Study 06/02/17 00:00 IMPRESSION: Turbulent flow with increased peak systolic and end-diastolic velocities at the right proximal ICA suggesting 50 to 69% diameter narrowing. No velocity findings to suggest left proximal ICA stenosis. Assessment & Plan - Diagnosis (1) Osteoarthritis of right hip Qualifiers: Osteoarthritis type: primary Qualified Code(s): M16.11 - Unilateral primary osteoarthritis, right hip Is this a current diagnosis for this admission?: Yes Plan: Patient has radiographic and clinical examination findings are consistent with osteoarthritis in her right hip however underlying avascular necrosis remains within the differential given her history of previous chemo and radiation. At this point do not feel she requires acute treatment would recommend continuing heat, anti-inflammatories along with physical therapy. At this point I have recommended patient follow-up as an outpatient for further evaluation and treatment with Dr. Baez.
--- NOTE | 2017-06-02 18:05 | XCELERA REPORT ---
[address] [address] Transthoracic Echocardiogram Report Name: GURINDER SMART Age: 57 yrs Gender: Female : 1960 Patient Status: Inpatient Patient Location: [address] [place] [address] Study Date: 06/02/2017 09:11 AM Height: 64 in Weight: 165 lb BSA: 1.8 m2 Procedure: A two-dimensional transthoracic echocardiogram with color flow and Doppler was performed. Study Quality: Fair. Reason For Study: TIA History: TIA. Ordering Physician: JOSY BEAR Performed By: Livia Alvarado Interpretation Summary There is no obvious cardiac source of embolus noted on this transthoracic echocardiogram. Follow-up with a DARIA is suggested if cardiac source is still suspected. The left ventricle is normal in size. There is mild concentric left ventricular hypertrophy. LV EF is > than 65% Left ventricular systolic function is normal. Doppler measurements suggest impaired left ventricular relaxation, which is associated with grade I/IV or mild diastolic dysfunction The left ventricular wall motion is normal. There is no thrombus. The right ventricle is not well visualized secondary to technical limitations The right atrium is normal. The left atrial size is normal. There is no evidence of mitral valve prolapse. There is no vegetation seen on the mitral valve. There is no mitral valve stenosis. There is no mitral regurgitation noted. There is no aortic valve stenosis There is no LVOT obstruction. No aortic regurgitation is present. There is no tricuspid stenosis. No tricuspid regurgitation. Unable to calculate RVSP due to insufficient TR jet. The aortic root is not well visualized but is probably normal size. There is no pericardial effusion. There is no obvious cardiac source of embolus noted on this transthoracic echocardiogram. Follow-up with a DARIA is suggested if cardiac source is still suspected MMode/2D Measurements & Calculations RVDd: 3.1 cm LVIDd: 3.6 cm FS: 41.5 % Ao root diam: 3.1 cm IVSd: 1.3 cm LVIDs: 2.1 cm EDV(Teich): 56.1 ml LVPWd: 1.3 cm ESV(Teich): 15.0 ml Ao root area: 7.6 cm2 EF(Teich): 73.3 % Doppler Measurements & Calculations MV E max hui: MV dec slope: Ao V2 max: LV V1 max P.7 cm/sec 133.1 cm/sec 5.0 mmHg MV A max hui: 364.3 cm/sec2 Ao max PG: LV V1 max: 102.3 cm/sec MV dec time: 7.1 mmHg 111.5 cm/sec MV E/A: 0.80 0.22 sec PA V2 max: 79.7 cm/sec PA max P.5 mmHg Left Ventricle The left ventricle is normal in size. There is mild concentric left ventricular hypertrophy. LV EF is > than 65%. Left ventricular systolic function is normal. Doppler measurements suggest impaired left ventricular relaxation, which is associated with grade I/IV or mild diastolic dysfunction. The left ventricular wall motion is normal. There is no thrombus. There is no ventricular septal defect visualized. Right Ventricle The right ventricle is not well visualized secondary to technical limitations. Atria The right atrium is normal. The left atrial size is normal. The interatrial septum is intact with no evidence for an atrial septal defect. Mitral Valve There is no evidence of mitral valve prolapse. There is no vegetation seen on the mitral valve. There is no mitral valve stenosis. There is no mitral regurgitation noted. Aortic Valve There is no aortic valvular vegetation. There is no aortic valve stenosis. There is no LVOT obstruction. No aortic regurgitation is present. Tricuspid Valve There is no tricuspid stenosis. No tricuspid regurgitation. Unable to calculate RVSP due to insufficient TR jet. Pulmonic Valve There is no pulmonic valvular stenosis. There is no pulmonic valvular regurgitation. Great Vessels The aortic root is not well visualized but is probably normal size. Effusions There is no pericardial effusion. : JOSY BEAR > Chiara Cabrera
--- NOTE | 2017-06-02 18:54 | PDOC PROGRESS REPORT ---
Subjective Progress Note for:: 06/02/17 Subjective:: Patient states she is doing okay. Patient still complains of hip pain. Patient was seen by orthopedics that recommends outpatient follow-up. Patient is walking well and probably can go home with home health and physical therapy. Patient did bring up the fact that she has lost quite a bit of weight. Patient stated she was about 207 pounds and went down to 168. Patient states she has not gone to the free clinic to follow-up on this. Physical Exam Vital Signs: Temp Pulse Resp BP Pulse Ox 98.6 F 66 20 117/81 97 06/02/17 15:22 06/02/17 16:00 06/02/17 16:00 06/02/17 16:00 06/02/17 16:00 Intake & Output 06/01/17 06/02/17 06/03/17 06:59 06:59 06:59 Intake Total 328 1341 Output Total 0 100 Balance 328 1241 Weight 76.7 kg General appearance: PRESENT: no acute distress, cooperative Head exam: PRESENT: normocephalic Eye exam: PRESENT: EOMI Ear exam: PRESENT: normal external ear exam Mouth exam: PRESENT: moist, tongue midline Neck exam: PRESENT: full ROM Respiratory exam: PRESENT: clear to auscultation sweta, unlabored Cardiovascular exam: PRESENT: RRR Pulses: PRESENT: normal dorsalis pedis pul Vascular exam: PRESENT: normal capillary refill GI/Abdominal exam: PRESENT: normal bowel sounds, soft. ABSENT: tenderness Rectal exam: PRESENT: deferred Gentrourinary exam: ABSENT: indwelling catheter Extremities exam: PRESENT: full ROM. ABSENT: calf tenderness, clubbing, pedal edema Neurological exam: PRESENT: alert, awake, oriented to person, oriented to place , oriented to time Psychiatric exam: PRESENT: normal mood Skin exam: PRESENT: warm Results Laboratory Results: 06/02/17 04:43 06/02/17 04:43 06/01/17 06/01/17 06/02/17 18:25 18:25 04:43 WBC RBC Hgb Hct MCV MCH MCHC RDW Plt Count Seg Neutrophils % Lymphocytes % Monocytes % Eosinophils % Basophils % Absolute Neutrophils Absolute Lymphocytes Absolute Monocytes Absolute Eosinophils Absolute Basophils Retic Count (auto) 2.58 Absolute Retic 0.080 Sodium 140.9 Potassium 3.4 L Chloride 103 Carbon Dioxide 27 Anion Gap 11 BUN 18 Creatinine 1.57 H Est GFR ( Amer) 41 L Est GFR (Non-Af Amer) 34 L Glucose 105 Calcium 9.6 Magnesium 1.9 Iron 31.2 L TIBC 227 L % Saturation 14 Ferritin 644.00 H 545.00 H Total Bilirubin 0.5 AST 12 L ALT 14 Alkaline Phosphatase 96 Total Protein 6.7 Albumin 3.4 L Triglycerides 180 H Cholesterol 145.78 LDL Cholesterol Direct 80 VLDL Cholesterol 36.0 H HDL Cholesterol 32 L Vitamin B12 213.0 L Folate 9.76 06/02/17 04:43 WBC 5.7 RBC 2.93 L Hgb 9.1 L Hct 26.1 L MCV 89 MCH 30.9 MCHC 34.7 RDW 15.4 H Plt Count 299 Seg Neutrophils % 76.0 Lymphocytes % 10.2 L Monocytes % 8.7 Eosinophils % 4.4 Basophils % 0.7 Absolute Neutrophils 4.3 Absolute Lymphocytes 0.6 Absolute Monocytes 0.5 Absolute Eosinophils 0.3 Absolute Basophils 0.0 Retic Count (auto) Absolute Retic Sodium Potassium Chloride Carbon Dioxide Anion Gap BUN Creatinine Est GFR ( Amer) Est GFR (Non-Af Amer) Glucose Calcium Magnesium Iron TIBC % Saturation Ferritin Total Bilirubin AST ALT Alkaline Phosphatase Total Protein Albumin Triglycerides Cholesterol LDL Cholesterol Direct VLDL Cholesterol HDL Cholesterol Vitamin B12 Folate 06/01/17 18:25 Troponin I < 0.012 Impressions: Chest X-Ray 06/01/17 14:11 IMPRESSION: NO ACUTE RADIOGRAPHIC FINDING IN THE CHEST. Head CT 06/01/17 14:11 IMPRESSION: NORMAL BRAIN CT WITHOUT CONTRAST. Hip/Pelvis X-Ray 06/01/17 14:11 IMPRESSION: OSTEOARTHRITIS OF THE RIGHT GREATER THAN LEFT HIP. NO ACUTE OSSEOUS ABNORMALITY IDENTIFIED. Carotid Doppler Study 06/02/17 00:00 IMPRESSION: Turbulent flow with increased peak systolic and end-diastolic velocities at the right proximal ICA suggesting 50 to 69% diameter narrowing. No velocity findings to suggest left proximal ICA stenosis. Assessment & Plan - Diagnosis (1) TIA (transient ischemic attack) Qualifiers: Transient cerebral ischemia type: unspecified Qualified Code(s): G45.9 - Transient cerebral ischemic attack, unspecified Is this a current diagnosis for this admission?: Yes Plan: Presentation is not consistent with a TIA. She does not have any deficits at this time. Carotid Doppler completed and cardiac echo is pending. Patient is on aspirin and statin patient does have 50-60% right-sided carotid stenosis at this point aspirin and statin is appropriate with follow-up evaluation on a regular basis. (2) Coronary artery disease Is this a current diagnosis for this admission?: Yes Plan: Continue aspirin and statin and low-dose beta-jorge (3) Hip pain, acute Qualifiers: Laterality: right Qualified Code(s): M25.551 - Pain in right hip Is this a current diagnosis for this admission?: Yes Plan: Patient was evaluated by orthopedics recommends follow-up outpatient with Dr. Sal. At this time patient most likely has osteoarthritis however there is a chance that she may have avascular necrosis as she received chemoradiation in the past. Patient will be discharged home with home health and physical therapy is also recommended that patient continue heat and NSAID to the area. (4) Dyslipidemia Is this a current diagnosis for this admission?: No Plan: Continue statin (5) Essential hypertension Is this a current diagnosis for this admission?: Yes Plan: Blood pressures have improved with the start of metoprolol. (6) Weight loss Is this a current diagnosis for this admission?: Yes Plan: She has had cervical cancer in the past for which she was treated. Patient states that she has lost over 30 pounds since February of this year. Patient states this weight loss is unintentional. Patient has not had colonoscopy. Patient does not require Pap smear as she has cervical cancer and does not have a cervix anymore. Will do a CT abdomen pelvis with oral contrast however patient will need further workup as outpatient. (7) Acute kidney failure Qualifiers: Acute renal failure type: unspecified Qualified Code(s): N17.9 - Acute kidney failure, unspecified Is this a current diagnosis for this admission?: Yes Plan: Patient renal function was normal in July 2016 uncertain as to what happened in between. Patient will have to follow-up as outpatient. Will start patient on gentle hydration to see if there is any improvement of her renal function. (8) Anemia Qualifiers: Anemia type: unspecified type Qualified Code(s): D64.9 - Anemia, unspecified Is this a current diagnosis for this admission?: Yes Plan: Anemia panel was consistent with B12 deficiency and iron deficiency. These are probably early in nature as patient MCV is still normal. Patient started on ferrous sulfate and patient given a subcutaneous B12 shot. - Time Time Spent with patient: 15-24 minutes Anticipated discharge: Home Within: within 24 hours - After discharged home in the morning with home health and physical therapy patient to follow with Dr. Baez for further evaluation of her hip pain.
[2017-06-02] MEDS: OXYCODONE-ACETAMINOPHEN 5-325 MG TABLET PO PRN (20:00)
[2017-06-02] MEDS: SIMVASTATIN 10 MG TABLET PO SCH (22:07)
--- NOTE | 2017-06-03 04:50 | RADIOLOGY REPORT (SQ) ---
EXAM DESCRIPTION: CT ABD/PELVIS ORAL ONLY COMPLETED DATE/TIME: 06/02/2017 11:01 pm REASON FOR STUDY: rapid weight loss . Chest pain. Right hip pain. COMPARISON: CT abdomen and pelvis 07/06/2015, 05/25/2015. TECHNIQUE: CT scan of the abdomen and pelvis performed without intravenous or oral contrast. Images reviewed with lung, soft tissue, and bone windows. Reconstructed coronal and sagittal MPR images revi ewed. All images stored on PACS. All CT scanners at this facility use dose modulation, iterative reconstruction, and/or weight based d osing when appropriate to reduce radiation dose to as low as reasonably achievable (ALARA). [facility]: Dose Right [facility]: CareDose [facility]: Dose Right [facility]: Teradose 4D [facility]: [employer] RADIATION DOSE: Up-to-date CT equipment and radiation dose reduction techniques were employed. CTDIv ol: 11.0 mGy. DLP: 577 mGy-cm.mGy. LIMITATIONS: None. FINDINGS: LOWER CHEST: Mild atelectasis at the lung bases. There is a 1.3 cm pleural-based nodular density in the right lower lobe (image 22). No pleural effusion. Calcified granuloma in the left lo wer lobe. NON-CONTRASTED LIVER, SPLEEN, ADRENALS: Evaluation limited by lack of IV contrast. Redemonstration o f 2.3 x 2.2 cm hypodense lesion at the right hepatic lobe. PANCREAS: The pancreas is atrophic. No peripancreatic inflammatory changes. GALLBLADDER: Cholelithiasis. RIGHT KIDNEY AND URETER: Assessment for masses limited by lack of IV contrast. No significant calci fications. There is severe right-sided hydronephrosis and dilation of the right ureter. There is c ortical thinning at the right kidney. LEFT KIDNEY AND URETER: Assessment for masses limited by lack of IV contrast. No significant calcif ications. No hydronephrosis or hydroureter. AORTA AND RETROPERITONEUM: No abdominal aortic aneurysm. No retroperitoneal hemorrhage. BOWEL AND PERITONEAL CAVITY: No dilated bowel loops. No free fluid. No CT evidence for obstruction, the oral contrast has reached the rectum. APPENDIX: Not visualized. PELVIS, BLADDER, AND ABDOMINAL WALL:The urinary bladder is partially distended. Lobulated mass at th e right adnexa is measuring 6.1 x 4.1 cm. No free fluid. BONES: Multilevel degenerative changes in the spine. There is mild retrolisthesis of L1 on L2. IMPRESSION: Lobulated mass at the right adnexa, worrisome for malignancy. Severe right-sided hydroureteronephrosis with renal cortical thinning, probably secondary to obstruct ion from the adnexal mass. 2.3 cm indeterminate hypodense hepatic lesion, not well evaluated on unenhanced CT. This can be bett er characterized with contrast-enhanced CT or MRI. Cholelithiasis. 1.3 cm pleural-based nodular density in the right lower lobe, metastatic lesion cannot be excluded. PET/CT recommended for further evaluation. COMMENT: Quality ID # [id number]: Final reports with documentation of one or more dose reduction techniques (e.g., Automated exposure control, adjustment of the mA and/or kV according to patient size, use of iterative reconstruction technique) TECHNICAL DOCUMENTATION: JOB ID: [id number] [employer]- All Rights Reserved
[2017-06-03 05:45] LABS: ANION GAP 10 (5-19); BLOOD UREA NITROGEN 18 mg/dL (7-20); CALCIUM 9.3 mg/dL (8.4-10.2); CARBON DIOXIDE 26 mmol/L (22-30); CHLORIDE 103 mmol/L (98-107); CREATININE RESULT 1.32 mg/dL (0.52-1.25); GLUCOSE 82 mg/dL (75-110); MAGNESIUM 1.8 mg/dL (1.6-2.3); POTASSIUM 4.2 mmol/L (3.6-5.0)
[2017-06-03] MEDS: FERROUS SULFATE 325 MG TABLET PO SCH ×2 (10:13→17:37)
[2017-06-03] MEDS: POTASSIUM CHLORIDE 20 MEQ/15 ML UDCUP PO SCH (10:14)
[2017-06-03] MEDS: METOPROLOL TARTRATE 25 MG TABLET PO SCH ×2 (10:14→22:28)
[2017-06-03] MEDS: CYANOCOBALAMIN (VITAMIN B-12) INJ 1000 MCG/1 ML VIAL IM SCH (10:15)
--- NOTE | 2017-06-03 12:47 | PDOC PROGRESS REPORT ---
Subjective Progress Note for:: 06/03/17 Subjective:: Patient of sit to tears today when she told about the CT findings. Explained to patient that we do not know definitively yet until the biopsy is done. Patient is agreeable to have biopsy done today or whenever. She did walk with PT but is still having right hip pain. Physical Exam Vital Signs: Temp Pulse Resp BP Pulse Ox 99.1 F 77 18 116/67 97 06/03/17 11:09 06/03/17 12:00 06/03/17 12:00 06/03/17 12:00 06/03/17 12:00 General appearance: PRESENT: no acute distress, cooperative Head exam: PRESENT: normocephalic Teeth exam: PRESENT: poor dentation Respiratory exam: PRESENT: clear to auscultation sweta, unlabored Cardiovascular exam: PRESENT: RRR GI/Abdominal exam: PRESENT: normal bowel sounds, soft. ABSENT: tenderness Rectal exam: PRESENT: deferred Extremities exam: ABSENT: pedal edema Musculoskeletal exam: PRESENT: ambulatory, tenderness - Right hip tenderness Neurological exam: PRESENT: CN II-XII grossly intact Psychiatric exam: PRESENT: other - Tearful Skin exam: PRESENT: warm Results Impressions: Chest X-Ray 06/01/17 14:11 IMPRESSION: NO ACUTE RADIOGRAPHIC FINDING IN THE CHEST. Head CT 06/01/17 14:11 IMPRESSION: NORMAL BRAIN CT WITHOUT CONTRAST. Hip/Pelvis X-Ray 06/01/17 14:11 IMPRESSION: OSTEOARTHRITIS OF THE RIGHT GREATER THAN LEFT HIP. NO ACUTE OSSEOUS ABNORMALITY IDENTIFIED. Abdomen/Pelvis CT 06/02/17 00:00 IMPRESSION: Lobulated mass at the right adnexa, worrisome for malignancy. Severe right-sided hydroureteronephrosis with renal cortical thinning, probably secondary to obstruction from the adnexal mass. 2.3 cm indeterminate hypodense hepatic lesion, not well evaluated on unenhanced CT. This can be better characterized with contrast-enhanced CT or MRI. Cholelithiasis. 1.3 cm pleural-based nodular density in the right lower lobe, metastatic lesion cannot be excluded. PET/CT recommended for further evaluation. Carotid Doppler Study 06/02/17 00:00 IMPRESSION: Turbulent flow with increased peak systolic and end-diastolic velocities at the right proximal ICA suggesting 50 to 69% diameter narrowing. No velocity findings to suggest left proximal ICA stenosis. Assessment & Plan - Diagnosis (1) TIA (transient ischemic attack) Qualifiers: Transient cerebral ischemia type: unspecified Qualified Code(s): G45.9 - Transient cerebral ischemic attack, unspecified Is this a current diagnosis for this admission?: Yes Plan: Presentation is not consistent with a TIA. She does not have any deficits at this time. Carotid Doppler completed and cardiac echo with normal EF and grade 1 diastolic dysfunction. Patient is on aspirin and statin patient does have 50- 60% right-sided carotid stenosis at this point aspirin and statin is appropriate with follow-up evaluation on a regular basis. Will hold aspirin at this time for retroperitoneal biopsy of the adnexal mass. (2) Coronary artery disease Is this a current diagnosis for this admission?: Yes Plan: Continue aspirin and statin and low-dose beta-jorge (3) Hip pain, acute Qualifiers: Laterality: right Qualified Code(s): M25.551 - Pain in right hip Is this a current diagnosis for this admission?: Yes Plan: Patient was evaluated by orthopedics recommends follow-up outpatient with Dr. Baez. At this time patient most likely has osteoarthritis however there is a chance that she may have avascular necrosis as she received chemoradiation in the past. Patient will be discharged home with home health and physical therapy is also recommended that patient continue heat and NSAID to the area. Unfortunately this pain could be related to the large adnexal mass seen on the right side of her CT abdomen and pelvis. (4) Dyslipidemia Is this a current diagnosis for this admission?: No Plan: Continue statin (5) Essential hypertension Is this a current diagnosis for this admission?: Yes Plan: Pressures stable on metoprolol. (6) Weight loss Is this a current diagnosis for this admission?: Yes (7) Acute kidney failure Qualifiers: Acute renal failure type: unspecified Qualified Code(s): N17.9 - Acute kidney failure, unspecified Is this a current diagnosis for this admission?: Yes Plan: Patient creatinine is mildly improved with the addition of continuous IV fluids however her renal failure is most likely due to the compression of her ureter by the right adnexal mass resulting in obstructive uropathy. Not sure if this can be stented due to the size of the mass compressing on the ureter. Will monitor ins and outs. There is no urology on service at this time. (8) Anemia Qualifiers: Anemia type: unspecified type Qualified Code(s): D64.9 - Anemia, unspecified Is this a current diagnosis for this admission?: Yes Plan: Anemia panel was consistent with B12 deficiency and iron deficiency. These are probably early in nature as patient MCV is still normal. Continue ferrous sulfate and B12 injections. This anemia may be related to her possible underlying malignancy. (9) Adnexal mass Plan: CT scan of the abdomen and pelvis showed lobulated mass in the right adnexa worrisome for malignancy. Severe right-sided hydro-ureteral nephrosis with renal cortical thinning. 2.3 cm indeterminate hypodense hepatic lesion. 1.3 cm pleural-based nodular density in the right lower lobe. Oncology was consulted and recommended that patient have a CT-guided biopsy of the adnexal mass. CT-guided biopsy was ordered today. Of note patient was treated for her cervical cancer at [facility] in the past. - Time Time Spent with patient: 15-24 minutes Anticipated discharge: Home - Patient being worked up for possible malignancy. Awaiting evaluation by oncology and completion of biopsy.
--- NOTE | 2017-06-03 18:35 | PDOC CONSULTATION ---
Consultation Consult Date: 06/03/17 Attending physician:: JUANCARLOS LIMA Consult reason:: New R adnexal mass, hx of cervical ca History of Present Illness Admission Date/PCP: 06/03/17 07:54 [facility] Patient complains of: R hip pain and R leg numbness, hx of cervical ca History of Present Illness: 57-year-old female with known history of cervical cancer, she was diagnosed last year, she had long-standing abnormal uterine bleeding, ultimately she was found to have a cervical cancer, she was seen by Dr. Angélica Rodriguez of [facility] onc[facility] in [place], she was treated first with concurrent chemoradiation, with cisplatin, she then had brachytherapy, finally in 12/2015 she had hysterectomy and staging surgery. Since that time, she is done fairly well. She has been following with [facility] closely, actually had a follow-up in March, she has been getting mostly pelvic exams, but no recent imaging. About 1 month ago she began having right pelvic pain with radiation down the right leg, with numbness, over that time. She is also had about a 30 pound weight loss. She presented with the pain here, ultimately was admitted, given the weight loss CT of the abdomen pelvis was done, this indicated a large right adnexal mass with compression or of the right ureter with right hydronephroureter, patient also had a hypodense mass in the liver as well as a right lower lobe lung nodule as well. I reviewed her images with radiology, they felt like there was a path for biopsy of this right adnexal mass. Past Medical History Cardiac Medical History: Reports: Coronary Artery Disease, Myocardial Infarction , Hyperlipidema, Hypertension Pulmonary Medical History: Denies: Asthma, Chronic Obstructive Pulmonary Disease (COPD) Neurological Medical History: Reports: Other - TIA 2 in 2012. Endocrine Medical History: Denies: Diabetes Mellitus Type 1, Diabetes Mellitus Type 2 Malignancy Medical History: Reports: Cervical Cancer GI Medical History: Reports: Gastroesophageal Reflux Disease Past Surgical History Past Surgical History: Reports: Cardiac Catheterization, Hysterectomy, Orthopedic Surgery - R ankle, L knee, Other - Orthosis surgeries include right ankle and left knee. Social History Lives with: Family Smoking Status: Former Smoker Frequency of Alcohol Use: None Hx Recreational Drug Use: No Drugs: None Hx Prescription Drug Abuse: No - Advance Directive Resuscitation Status: Full Code Family History Family History: Reviewed & Not Pertinent, Arthritis, CAD, Hypertension, Malignancy, Thyroid Disfunction, Other - alzheimers Parental Family History Reviewed: Yes Children Family History Reviewed: Yes Sibling(s) Family History Reviewed.: Yes Medication/Allergy Home Medications: Acetaminophen [Tylenol 325 mg Tablet] 650 mg PO Q4HP PRN tablet 06/03/17 Aspirin [Ecotrin 325 mg EC Tablet] 325 mg PO DAILY tabec 06/03/17 Ferrous Sulfate [Feosol 325 mg Tablet] 325 mg PO BIDPCBS #0 tablet 06/03/17 Ibuprofen [Motrin 800 mg Tablet] 800 mg PO Q8H PRN #30 tab 06/03/17 Metoprolol Tartrate [Lopressor 25 mg Tablet] 25 mg PO Q12 #60 tablet 06/03/17 Simvastatin [Zocor 10 mg Tablet] 10 mg PO QHS #30 tablet 06/03/17 Allergies/Adverse Reactions: No Known Allergies Allergy (Verified 08/17/16 15:01) Review of Systems Constitutional: ABSENT: chills, fever(s), headache(s), weight gain, weight loss Eyes: ABSENT: visual disturbances Ears: ABSENT: hearing changes Cardiovascular: ABSENT: chest pain, dyspnea on exertion, edema, orthropnea, palpitations Respiratory: ABSENT: cough, hemoptysis Gastrointestinal: ABSENT: abdominal pain, constipation, diarrhea, hematemesis, hematochezia, nausea, vomiting Genitourinary: ABSENT: dysuria, hematuria Musculoskeletal: ABSENT: joint swelling Integumentary: ABSENT: rash, wounds Neurological: ABSENT: abnormal gait, abnormal speech, confusion, dizziness, focal weakness, syncope Psychiatric: ABSENT: anxiety, depression, homidical ideation, suicidal ideation Endocrine: ABSENT: cold intolerance, heat intolerance, polydipsia, polyuria Hematologic/Lymphatic: ABSENT: easy bleeding, easy bruising Physical Exam Vital Signs: Temp Pulse Resp BP Pulse Ox 98.4 F 76 20 125/62 100 06/03/17 16:13 06/03/17 16:13 06/03/17 16:13 06/03/17 16:13 06/03/17 16:13 Intake & Output 06/02/17 06/03/17 06/04/17 06:59 06:59 06:59 Intake Total 521 Balance 521 General appearance: PRESENT: no acute distress, well-developed, well-nourished Head exam: PRESENT: atraumatic, normocephalic Eye exam: PRESENT: conjunctiva pink, EOMI, PERRLA. ABSENT: scleral icterus Ear exam: PRESENT: normal external ear exam Mouth exam: PRESENT: moist, tongue midline Neck exam: ABSENT: carotid bruit, JVD, lymphadenopathy, thyromegaly Respiratory exam: PRESENT: clear to auscultation sweta. ABSENT: rales, rhonchi, wheezes Cardiovascular exam: PRESENT: RRR. ABSENT: diastolic murmur, rubs, systolic murmur Pulses: PRESENT: normal dorsalis pedis pul Vascular exam: PRESENT: normal capillary refill GI/Abdominal exam: PRESENT: normal bowel sounds, soft. ABSENT: distended, guarding, mass, organolmegaly, rebound, tenderness Rectal exam: PRESENT: deferred Extremities exam: PRESENT: full ROM. ABSENT: calf tenderness, clubbing, pedal edema Neurological exam: PRESENT: alert, awake, oriented to person, oriented to place , oriented to time, oriented to situation, CN II-XII grossly intact. ABSENT: motor sensory deficit Psychiatric exam: PRESENT: appropriate affect, normal mood. ABSENT: homicidal ideation, suicidal ideation Skin exam: PRESENT: dry, intact, warm. ABSENT: cyanosis, rash Results Impressions: Chest X-Ray 06/01/17 14:11 IMPRESSION: NO ACUTE RADIOGRAPHIC FINDING IN THE CHEST. Head CT 06/01/17 14:11 IMPRESSION: NORMAL BRAIN CT WITHOUT CONTRAST. Hip/Pelvis X-Ray 06/01/17 14:11 IMPRESSION: OSTEOARTHRITIS OF THE RIGHT GREATER THAN LEFT HIP. NO ACUTE OSSEOUS ABNORMALITY IDENTIFIED. Abdomen/Pelvis CT 06/02/17 00:00 IMPRESSION: Lobulated mass at the right adnexa, worrisome for malignancy. Severe right-sided hydroureteronephrosis with renal cortical thinning, probably secondary to obstruction from the adnexal mass. 2.3 cm indeterminate hypodense hepatic lesion, not well evaluated on unenhanced CT. This can be better characterized with contrast-enhanced CT or MRI. Cholelithiasis. 1.3 cm pleural-based nodular density in the right lower lobe, metastatic lesion cannot be excluded. PET/CT recommended for further evaluation. Carotid Doppler Study 06/02/17 00:00 IMPRESSION: Turbulent flow with increased peak systolic and end-diastolic velocities at the right proximal ICA suggesting 50 to 69% diameter narrowing. No velocity findings to suggest left proximal ICA stenosis. Status: Image reviewed by me Assessment & Plan - Diagnosis (1) Adnexal mass Is this a current diagnosis for this admission?: Yes Plan: Concerning for recurrent cervical cancer, or another primary [facility] malignancy, plan for CT-guided biopsy. We do not have urology currently, so stent placement is not possible but patient does not have renal failure at present. We will first attempt a biopsy, depending on that we can discuss the case with [facility] oncology as well as urology, and decide on next steps of care. Today spent greater than 70 minutes in discussion with patient, patient agrees with plan at present. - Time Time Spent: Greater than 70 Minutes Critical Time spent with patient: 35 or more minutes - Inpatient Certification Medical Necessity: Need for Surgery
[2017-06-03] MEDS: OXYCODONE-ACETAMINOPHEN 5-325 MG TABLET PO PRN (20:12)
[2017-06-03] MEDS: SIMVASTATIN 10 MG TABLET PO SCH (22:28)
[2017-06-04] MEDS: OXYCODONE-ACETAMINOPHEN 5-325 MG TABLET PO PRN ×3 (03:47→22:03)
[2017-06-04 05:49] LABS: ANION GAP 8 (5-19); BLOOD UREA NITROGEN 21 mg/dL (7-20); CALCIUM 9.4 mg/dL (8.4-10.2); CARBON DIOXIDE 23 mmol/L (22-30); CHLORIDE 107 mmol/L (98-107); CREATININE RESULT 1.43 mg/dL (0.52-1.25); GLUCOSE 89 mg/dL (75-110); POTASSIUM 4.5 mmol/L (3.6-5.0); SODIUM 138.4 mmol/L (137-145)
--- NOTE | 2017-06-04 08:34 | PDOC PROGRESS REPORT ---
Subjective Progress Note for:: 06/04/17 Subjective:: No acute events overnight bx pending this am Physical Exam Vital Signs: Temp Pulse Resp BP Pulse Ox 98.6 F 67 16 92/77 L 98 06/04/17 07:08 06/04/17 07:08 06/04/17 07:08 06/04/17 07:08 06/04/17 07:08 Intake & Output 06/03/17 06/04/17 06/05/17 06:59 06:59 06:59 Intake Total 1576 Balance 1576 General appearance: PRESENT: no acute distress, well-developed, well-nourished Head exam: PRESENT: atraumatic, normocephalic Eye exam: PRESENT: conjunctiva pink, EOMI, PERRLA. ABSENT: scleral icterus Ear exam: PRESENT: normal external ear exam Mouth exam: PRESENT: moist, tongue midline Neck exam: ABSENT: carotid bruit, JVD, lymphadenopathy, thyromegaly Respiratory exam: PRESENT: clear to auscultation sweta. ABSENT: rales, rhonchi, wheezes Cardiovascular exam: PRESENT: RRR. ABSENT: diastolic murmur, rubs, systolic murmur Pulses: PRESENT: normal dorsalis pedis pul Vascular exam: PRESENT: normal capillary refill GI/Abdominal exam: PRESENT: normal bowel sounds, soft. ABSENT: distended, guarding, mass, organolmegaly, rebound, tenderness Rectal exam: PRESENT: deferred Extremities exam: PRESENT: full ROM. ABSENT: calf tenderness, clubbing, pedal edema Neurological exam: PRESENT: alert, awake, oriented to person, oriented to place , oriented to time, oriented to situation, CN II-XII grossly intact. ABSENT: motor sensory deficit Psychiatric exam: PRESENT: appropriate affect, normal mood. ABSENT: homicidal ideation, suicidal ideation Skin exam: PRESENT: dry, intact, warm. ABSENT: cyanosis, rash Results Laboratory Results: 06/04/17 04:23 06/04/17 04:23 Sodium 138.4 Potassium 4.5 Chloride 107 Carbon Dioxide 23 Anion Gap 8 BUN 21 H Creatinine 1.43 H Est GFR ( Amer) 45 L Est GFR (Non-Af Amer) 38 L Glucose 89 Calcium 9.4 Impressions: Chest X-Ray 06/01/17 14:11 IMPRESSION: NO ACUTE RADIOGRAPHIC FINDING IN THE CHEST. Head CT 06/01/17 14:11 IMPRESSION: NORMAL BRAIN CT WITHOUT CONTRAST. Hip/Pelvis X-Ray 06/01/17 14:11 IMPRESSION: OSTEOARTHRITIS OF THE RIGHT GREATER THAN LEFT HIP. NO ACUTE OSSEOUS ABNORMALITY IDENTIFIED. Abdomen/Pelvis CT 06/02/17 00:00 IMPRESSION: Lobulated mass at the right adnexa, worrisome for malignancy. Severe right-sided hydroureteronephrosis with renal cortical thinning, probably secondary to obstruction from the adnexal mass. 2.3 cm indeterminate hypodense hepatic lesion, not well evaluated on unenhanced CT. This can be better characterized with contrast-enhanced CT or MRI. Cholelithiasis. 1.3 cm pleural-based nodular density in the right lower lobe, metastatic lesion cannot be excluded. PET/CT recommended for further evaluation. Carotid Doppler Study 06/02/17 00:00 IMPRESSION: Turbulent flow with increased peak systolic and end-diastolic velocities at the right proximal ICA suggesting 50 to 69% diameter narrowing. No velocity findings to suggest left proximal ICA stenosis. Status: Image reviewed by me Assessment & Plan - Diagnosis (1) Adnexal mass Is this a current diagnosis for this admission?: Yes Plan: Bx pending but ultimately may require transfer to tertiary institution for urologic care given hydronephrosis. Hospitalist team will make transfer calls this am, agree w/ this approach. - Time Time Spent with patient: 35 or more minutes Critical Time spent with patient: 35 or more minutes
[2017-06-04] MEDS ORDERED: MIDAZOLAM 2 MG/2 ML INJ ONE (08:44)
[2017-06-04] MEDS ORDERED: FENTANYL CITRATE INJ/PF 100 MCG/2 ML AMPUL ONE (08:45)
[2017-06-04] MEDS ORDERED: NORMAL SALINE 1000 ML 1,000 ML IV PRN (10:00)
[2017-06-04] MEDS ORDERED: MAGNESIUM HYDROXIDE SUSP 30 ML UDCUP PO PRN (10:30)
[2017-06-04] MEDS ORDERED: ONDANSETRON HCL INJ/PF 4 MG/2 ML SDV IV PRN (10:30)
[2017-06-04] MEDS ORDERED: TEMAZEPAM 15 MG CAPSULE PO PRN (10:30)
[2017-06-04] MEDS: POTASSIUM CHLORIDE 20 MEQ/15 ML UDCUP PO SCH (11:20)
--- NOTE | 2017-06-04 11:22 | RADIOLOGY REPORT (SQ) ---
EXAM DESCRIPTION: CT BIOPSY ABD/RETROPERIT MASS; CT NEEDLE PLACEMENT COMPLETED DATE/TIME: 06/04/2017 10:03 am; 06/04/2017 10:02 am REASON FOR STUDY: right adenexal mass; ABD/RETROPERITONEAL BIOPSY COMPARISON: CT abdomen pelvis 06/02/2017 TECHNIQUE: CT guided biopsy of the right deep pelvic mass performed with conscious sedation. CT Fluoroscopy Time: 14.[address] fluoro time All CT scanners at this facility use dose modulation, iterative reconstruction, and/or weight based d osing when appropriate to reduce radiation dose to as low as reasonably achievable (ALARA). [facility]: Dose Right [facility]: CareDose [facility]: Dose Right [facility]: Teradose 4D [facility]: Mobbr [employer] RADIATION DOSE: mGy. FINDINGS: The procedure was discussed with the patient and the patient agreed to the procedure. Prio r to the procedure, a time out was performed to verify the patient's identity and planned procedure. IV sedation was administered and physician direction by the registered nurse using 1 milligrams of Ve rsed and 75 micrograms of fentanyl. Physiologic monitoring was provided before, during, and after sed ation. The total sedation time was 30 minutes. Documentation face to face time, the performing proceduralist, spent monitoring the patient: [address] scanning was performed to localize the percutaneous site for the biopsy approach. After sterile skin prep and local lidocaine for skin and deep tissue anesthesia, a coaxial biopsy nee dle was used to obtain multiple cores of tissue. An aspirate was also obtained of the mass. Specimen s were given to the stitching machine operator at the time of acquisition. The core biopsy tissue was submitted to the lab in formalin. There were no immediate complications. Pathology is pending at the time of dictation. IMPRESSION: CT GUIDED BIOPSY OF THE DEEP RIGHT PELVIC SIDEWALL MASS PERFORMED WITHOUT IMMEDIATE COMP LICATION. PATHOLOGY PENDING. IV CONSCIOUS SEDATION COMMENT: Quality ID 145: Final reports for procedures using fluoroscopy that document radiation exp osure indices, or exposure time and number of fluorographic images (if radiation exposure indices are not available) Patient medication list reviewed: Yes- Quality ID# [id number]:Eligible professional attests to documenting i n the medical record they obtained, updated, or reviewed the patient's current medications.. TECHNICAL DOCUMENTATION: JOB ID: [id number] Quality ID# 436: Final reports with documentation of one or more dose reduction techniques (e.g., Aut omated exposure control, adjustment of the mA and/or kV according to patient size, use of iterative r econstruction technique) 2010 [employer]- All Rights Reserved
--- NOTE | 2017-06-04 11:22 | RADIOLOGY REPORT (SQ) ---
EXAM DESCRIPTION: CT BIOPSY ABD/RETROPERIT MASS; CT NEEDLE PLACEMENT COMPLETED DATE/TIME: 06/04/2017 10:03 am; 06/04/2017 10:02 am REASON FOR STUDY: right adenexal mass; ABD/RETROPERITONEAL BIOPSY COMPARISON: CT abdomen pelvis 06/02/2017 TECHNIQUE: CT guided biopsy of the right deep pelvic mass performed with conscious sedation. CT Fluoroscopy Time: 14.[address] fluoro time All CT scanners at this facility use dose modulation, iterative reconstruction, and/or weight based d osing when appropriate to reduce radiation dose to as low as reasonably achievable (ALARA). [facility]: Dose Right [facility]: CareDose [facility]: Dose Right [facility]: Teradose 4D [facility]: [employer] RADIATION DOSE: mGy. FINDINGS: The procedure was discussed with the patient and the patient agreed to the procedure. Prio r to the procedure, a time out was performed to verify the patient's identity and planned procedure. IV sedation was administered and physician direction by the registered nurse using 1 milligrams of Ve rsed and 75 micrograms of fentanyl. Physiologic monitoring was provided before, during, and after sed ation. The total sedation time was 30 minutes. Documentation face to face time, the performing proceduralist, spent monitoring the patient: [address] scanning was performed to localize the percutaneous site for the biopsy approach. After sterile skin prep and local lidocaine for skin and deep tissue anesthesia, a coaxial biopsy nee dle was used to obtain multiple cores of tissue. An aspirate was also obtained of the mass. Specimen s were given to the fisher trawl line at the time of acquisition. The core biopsy tissue was submitted to the lab in formalin. There were no immediate complications. Pathology is pending at the time of dictation. IMPRESSION: CT GUIDED BIOPSY OF THE DEEP RIGHT PELVIC SIDEWALL MASS PERFORMED WITHOUT IMMEDIATE COMP LICATION. PATHOLOGY PENDING. IV CONSCIOUS SEDATION COMMENT: Quality ID 145: Final reports for procedures using fluoroscopy that document radiation exp osure indices, or exposure time and number of fluorographic images (if radiation exposure indices are not available) Patient medication list reviewed: Yes- Quality ID# [id number]:Eligible professional attests to documenting i n the medical record they obtained, updated, or reviewed the patient's current medications.. TECHNICAL DOCUMENTATION: JOB ID: [id number] Quality ID# [id number]: Final reports with documentation of one or more dose reduction techniques (e.g., Aut omated exposure control, adjustment of the mA and/or kV according to patient size, use of iterative r econstruction technique) 2010 [employer]- All Rights Reserved
[2017-06-04] MEDS: FERROUS SULFATE 325 MG TABLET PO SCH ×2 (11:26→18:27)
[2017-06-04] MEDS: METOPROLOL TARTRATE 25 MG TABLET PO SCH ×2 (11:27→22:01)
[2017-06-04] MEDS: CYANOCOBALAMIN (VITAMIN B-12) INJ 1000 MCG/1 ML VIAL IM SCH (11:30)
--- NOTE | 2017-06-04 16:21 | PDOC PROGRESS REPORT ---
Subjective Progress Note for:: 06/04/17 Subjective:: Patient doing well following the biopsy. Explained to patient that she does not require transfer to another facility however she will need to be evaluated by urology. I did speak to Dr. Daniel urology at [facility] who states that he could see her tomorrow at 815 in [facility]. Arrangements are being made for transportation to the facility however she will have to find transportation home. Physical Exam Vital Signs: Temp Pulse Resp BP Pulse Ox 98.9 F 77 16 90/55 L 100 06/04/17 11:52 06/04/17 11:52 06/04/17 11:52 06/04/17 11:52 06/04/17 11:52 Intake & Output 06/03/17 06/04/17 06/05/17 06:59 06:59 06:59 Intake Total 1576 Balance 1576 General appearance: PRESENT: no acute distress, morbidly obese Head exam: PRESENT: normocephalic Eye exam: PRESENT: EOMI Teeth exam: PRESENT: poor dentation, other - Missing dentition Neck exam: PRESENT: full ROM Respiratory exam: PRESENT: clear to auscultation sweta, unlabored Cardiovascular exam: PRESENT: RRR GI/Abdominal exam: PRESENT: normal bowel sounds, soft. ABSENT: tenderness Rectal exam: PRESENT: deferred Extremities exam: PRESENT: pedal edema. ABSENT: tenderness Musculoskeletal exam: PRESENT: ambulatory, full ROM Neurological exam: PRESENT: alert, awake, oriented to person, oriented to place , oriented to time, CN II-XII grossly intact Psychiatric exam: PRESENT: normal mood Skin exam: PRESENT: pallor Results Laboratory Results: 06/04/17 04:23 06/04/17 04:23 Sodium 138.4 Potassium 4.5 Chloride 107 Carbon Dioxide 23 Anion Gap 8 BUN 21 H Creatinine 1.43 H Est GFR ( Amer) 45 L Est GFR (Non-Af Amer) 38 L Glucose 89 Calcium 9.4 Impressions: Chest X-Ray 06/01/17 14:11 IMPRESSION: NO ACUTE RADIOGRAPHIC FINDING IN THE CHEST. Head CT 06/01/17 14:11 IMPRESSION: NORMAL BRAIN CT WITHOUT CONTRAST. Hip/Pelvis X-Ray 06/01/17 14:11 IMPRESSION: OSTEOARTHRITIS OF THE RIGHT GREATER THAN LEFT HIP. NO ACUTE OSSEOUS ABNORMALITY IDENTIFIED. Abdomen/Pelvis CT 06/02/17 00:00 IMPRESSION: Lobulated mass at the right adnexa, worrisome for malignancy. Severe right-sided hydroureteronephrosis with renal cortical thinning, probably secondary to obstruction from the adnexal mass. 2.3 cm indeterminate hypodense hepatic lesion, not well evaluated on unenhanced CT. This can be better characterized with contrast-enhanced CT or MRI. Cholelithiasis. 1.3 cm pleural-based nodular density in the right lower lobe, metastatic lesion cannot be excluded. PET/CT recommended for further evaluation. Carotid Doppler Study 06/02/17 00:00 IMPRESSION: Turbulent flow with increased peak systolic and end-diastolic velocities at the right proximal ICA suggesting 50 to 69% diameter narrowing. No velocity findings to suggest left proximal ICA stenosis. Abdomen Biopsy CT 06/04/17 00:00 IMPRESSION: CT GUIDED BIOPSY OF THE DEEP RIGHT PELVIC SIDEWALL MASS PERFORMED WITHOUT IMMEDIATE COMPLICATION. PATHOLOGY PENDING. IV CONSCIOUS SEDATION Guidance Needle Placement CT 06/04/17 00:00 IMPRESSION: CT GUIDED BIOPSY OF THE DEEP RIGHT PELVIC SIDEWALL MASS PERFORMED WITHOUT IMMEDIATE COMPLICATION. PATHOLOGY PENDING. IV CONSCIOUS SEDATION Assessment & Plan - Diagnosis (1) TIA (transient ischemic attack) Qualifiers: Transient cerebral ischemia type: unspecified Qualified Code(s): G45.9 - Transient cerebral ischemic attack, unspecified Is this a current diagnosis for this admission?: Yes Plan: Presentation is not consistent with a TIA. She does not have any deficits at this time. Cardiac echo with normal EF and grade 1 diastolic dysfunction. Carotid doppler with 50-60% right-sided carotid stenosis. Treat medically with aspirin and statin with repeat carotid studies in the future. (2) Coronary artery disease Is this a current diagnosis for this admission?: Yes Plan: Continue aspirin and statin and low-dose beta-jorge (3) Hip pain, acute Qualifiers: Laterality: right Qualified Code(s): M25.551 - Pain in right hip Is this a current diagnosis for this admission?: Yes Plan: Patient was evaluated by orthopedics recommends follow-up outpatient with Dr. Baez. At this time patient most likely has osteoarthritis however there is a chance that she may have avascular necrosis as she received chemoradiation in the past. Patient will be discharged home with home health and physical therapy is also recommended that patient continue heat and NSAID to the area. Unfortunately this pain could be related to the large adnexal mass seen on the right side of her CT abdomen and pelvis. Patient pain is better controlled and she is ambulating with a walker. (4) Dyslipidemia Is this a current diagnosis for this admission?: No Plan: Continue statin (5) Essential hypertension Is this a current diagnosis for this admission?: Yes Plan: blood pressures stable on metoprolol. (6) Weight loss Is this a current diagnosis for this admission?: Yes Plan: She has had cervical cancer in the past for which she was treated. Patient states that she has lost over 30 pounds since February of this year. Patient states this weight loss is unintentional. CT with oral contrast show a large right adenexal mass with a hepatic lesion and a right lower lobe lesion. Biopsy of the adenexal mass completed on 06/04. Dr. Woodruff would like to follow up with him in 2 weeks. (7) Acute kidney failure Qualifiers: Acute renal failure type: unspecified Qualified Code(s): N17.9 - Acute kidney failure, unspecified Is this a current diagnosis for this admission?: Yes Plan: Patient creatinine is mildly improved with the addition of continuous IV fluids however her renal failure is most likely due to the compression of her ureter by the right adnexal mass resulting in obstructive uropathy. Patient will follow up with Dr. Daniel in the morning at his clinic in [facility] at 8:15. Spoke with case management will attempt to arrange transportation to her appointment. Will also have patient work on applying for medicaid. (8) Anemia Qualifiers: Anemia type: unspecified type Qualified Code(s): D64.9 - Anemia, unspecified Is this a current diagnosis for this admission?: Yes Plan: Anemia panel was consistent with B12 deficiency and iron deficiency. These are probably early in nature as patient MCV is still normal. Continue ferrous sulfate and B12 injections. This anemia may be related to her possible underlying malignancy. (9) Adnexal mass Is this a current diagnosis for this admission?: Yes Plan: CT scan of the abdomen and pelvis showed lobulated mass in the right adnexa 6.1x 4.1cm worrisome for malignancy. Severe right-sided hydro-ureteral nephrosis with renal cortical thinning. 2.3 cm indeterminate hypodense hepatic lesion. 1.3 cm pleural-based nodular density in the right lower lobe. Oncology was consulted and recommended that patient have a CT-guided biopsy of the adnexal mass which was completed on 06/04. Dr. Woodruff would like to follow with patient in 2 weeks for biopsy results. Of note patient was treated for her cervical cancer at [facility] in the past. - Time Time Spent with patient: 15-24 minutes Anticipated discharge: Home Within: within 24 hours - Patient is to be discharge tomorrow for 8:[address] Daniel at [facility].
--- NOTE | 2017-06-04 20:37 | PDOC DISCHARGE SUMMARY ---
General - Admit/Disc Date/PCP Admission Date/Primary Care Provider: 06/03/17 07:54 [facility] Discharge Date: 06/05/17 - Discharge Diagnosis (1) Coronary artery disease Is this a current diagnosis for this admission?: Yes (2) Hip pain, acute Is this a current diagnosis for this admission?: Yes (3) Dyslipidemia Is this a current diagnosis for this admission?: No (4) Essential hypertension Is this a current diagnosis for this admission?: Yes (5) Weight loss Is this a current diagnosis for this admission?: Yes (6) Acute kidney failure Is this a current diagnosis for this admission?: Yes (7) Anemia Is this a current diagnosis for this admission?: Yes (8) Adnexal mass Is this a current diagnosis for this admission?: Yes - Additional Information Resuscitation Status: Full Code Discharge Diet: As Tolerated Discharge Activity: Activity As Tolerated Home Medications: Acetaminophen [Tylenol 325 mg Tablet] 650 mg PO Q4HP PRN tablet 06/03/17 Ferrous Sulfate [Feosol 325 mg Tablet] 325 mg PO BIDPCBS #0 tablet 06/03/17 Simvastatin [Zocor 10 mg Tablet] 10 mg PO QHS #30 tablet 06/03/17 Aspirin [Aspirin EC] 81 mg PO DAILY #1 pkg 06/04/17 Metoprolol Tartrate [Lopressor 25 mg Tablet] 12.5 mg PO Q12 #30 tablet 06/04/17 Oxycodone HCl/Acetaminophen [Oxycodon-Acetaminophen 7.5-325] 1 each PO Q6 2 Days #8 tablet 06/04/17 Oxycodone HCl/Acetaminophen [Percocet 5-325 mg Tablet] 1 tab PO Q6HP PRN 8 Days tablet 06/04/17 History of Present Illness History of Present Illness: GURINDER SMART is a 57 year old female who has a prior history of transient ischemic attack 2. In 2012 the patient had a TIA followed by a second event. The events were 1 month apart. She was taking Plavix but has not recently been taking Plavix or aspirin. The patient also notes that she had a myocardial infarction in 2012. She was treated at [facility]. She underwent cardiac catheterization that showed a 50% blockage to 1 of her major arteries. No stent was placed. She is currently not on any cardiac medications. This morning the patient woke up and ate a biscuit at around 730. At 930 she started to feel numb from her right foot to her right hip. This then progressed up to her right hand which progressed to her right shoulder. At the same time the patient started to experience severe pain in her leg. The pain would start at the top of her ankle and then shoot upward into her knee and then into her hip. She also started having pain in her shoulder, arm and hand. The symptoms are on the right. Again, this is associated with numbness. The patient states that her symptoms have been going on for at least one month. Today, her symptoms came on faster and were more severe. She was worried that she was having a severe stroke and that is what prompted her to come to the emergency department. On review of systems she has not had any fevers, chills or night sweats. She states that she is not taking care of herself well. She is not eating well and she may be losing weight but she is not sure. She does get intermittent blurry vision when she is in severe pain. She has no pain or burning in her ears. She has no trouble swallowing or pain with swallowing. She denies shortness of breath or cough. She has not had any recent upper respiratory tract infections. She denies chest pain and palpitations. She denies nausea or vomiting. She has no abdominal pain. Occasionally, she will have diarrhea when she eats something sweet. She denies constipation. She has no new rashes but she does admit to some mosquito bites. She has no swelling of her lower extremities. She has no orthopnea or PND. Hospital Course Hospital Course: Hip pain, acute Patient was initially thought to have had a stroke however her clinical examination was not consistent with that. Patient was evaluated by orthopedics recommends follow-up outpatient with Dr. Baez. At this time patient most likely has osteoarthritis however there is a chance that she may have avascular necrosis as she received chemoradiation in the past. Following this evaluation patient was found to have a large right sided adnexal mass seen CT abdomen and pelvis which could be the cause of her pain. Patient pain is better controlled and she is ambulating with a walker. Coronary artery disease Patient did not present with any symptoms. Her echo was normal. Carotid Doppler did show 50-60% right-sided carotid stenosis. She was being treated medically with aspirin, statin beta-debbie. Dislipidemia As patient does not have any insurance and was recommended that patient be started on simvastatin which should be more affordable for her. Management was also consulted to assist patient with her Medicaid application. Essential hypertension Recent blood pressures were controlled on metoprolol 25 twice daily however patient did become hypotensive at times and the dose was decreased to 12.5 mg p.o. twice daily. Weight loss She has had cervical cancer in the past for which she was treated. Patient states that she has lost over 30 pounds since February of this year. Patient states this weight loss is unintentional. CT with oral contrast show a large right adenexal mass with a hepatic lesion and a right lower lobe lesion. Biopsy of the adenexal mass completed on 06/04. Dr. Woodruff would like to follow up with him in 2 weeks. (7) Acute kidney failure Patient creatinine is mildly improved with the addition of continuous IV fluids however her renal failure is most likely due to the compression of her ureter by the right adnexal mass resulting in obstructive uropathy. Patient will follow up with Dr. Daniel in the morning of 06/05/2017 at his clinic in [facility] at 8:15. Spoke with case management will attempt to arrange transportation to her appointment hospital to her appointment on 2016. Will also have patient work on applying for medicaid which assist with transportation to her future appointments. (8) Anemia Anemia panel was consistent with B12 deficiency and iron deficiency. These are probably early in nature as patient MCV is still normal. Continue ferrous sulfate and B12 injections. This anemia may also be related to her possible underlying malignancy. (9) Adnexal mass CT scan of the abdomen and pelvis showed lobulated mass in the right adnexa 6.1x 4.1cm worrisome for malignancy. Severe right-sided hydro-ureteral nephrosis with renal cortical thinning. 2.3 cm indeterminate hypodense hepatic lesion. 1.3 cm pleural-based nodular density in the right lower lobe. Oncology was consulted and recommended that patient have a CT-guided biopsy of the adnexal mass which was completed on 06/04. Dr. Woodruff would like to follow with patient in 2 weeks for biopsy results. Of note patient was treated for her cervical cancer at [facility] in the past. Physical Exam Vital Signs: Temp Pulse Resp BP Pulse Ox 99.3 F 90 16 134/69 H 100 06/04/17 17:11 09/07/17 17:11 06/04/17 17:11 06/04/17 17:11 06/04/17 17:11 Intake & Output 06/03/17 06/04/17 06/05/17 06:59 06:59 06:59 Intake Total 1576 1820 Balance 1576 1820 Results Laboratory Results: 06/04/17 04:23 06/04/17 04:23 Sodium 138.4 Potassium 4.5 Chloride 107 Carbon Dioxide 23 Anion Gap 8 BUN 21 H Creatinine 1.43 H Est GFR ( Amer) 45 L Est GFR (Non-Af Amer) 38 L Glucose 89 Calcium 9.4 Impressions: Chest X-Ray 06/01/17 14:11 IMPRESSION: NO ACUTE RADIOGRAPHIC FINDING IN THE CHEST. Head CT 06/01/17 14:11 IMPRESSION: NORMAL BRAIN CT WITHOUT CONTRAST. Hip/Pelvis X-Ray 06/01/17 14:11 IMPRESSION: OSTEOARTHRITIS OF THE RIGHT GREATER THAN LEFT HIP. NO ACUTE OSSEOUS ABNORMALITY IDENTIFIED. Abdomen/Pelvis CT 06/02/17 00:00 IMPRESSION: Lobulated mass at the right adnexa, worrisome for malignancy. Severe right-sided hydroureteronephrosis with renal cortical thinning, probably secondary to obstruction from the adnexal mass. 2.3 cm indeterminate hypodense hepatic lesion, not well evaluated on unenhanced CT. This can be better characterized with contrast-enhanced CT or MRI. Cholelithiasis. 1.3 cm pleural-based nodular density in the right lower lobe, metastatic lesion cannot be excluded. PET/CT recommended for further evaluation. Carotid Doppler Study 06/02/17 00:00 IMPRESSION: Turbulent flow with increased peak systolic and end-diastolic velocities at the right proximal ICA suggesting 50 to 69% diameter narrowing. No velocity findings to suggest left proximal ICA stenosis. Abdomen Biopsy CT 06/04/17 00:00 IMPRESSION: CT GUIDED BIOPSY OF THE DEEP RIGHT PELVIC SIDEWALL MASS PERFORMED WITHOUT IMMEDIATE COMPLICATION. PATHOLOGY PENDING. IV CONSCIOUS SEDATION Guidance Needle Placement CT 06/04/17 00:00 IMPRESSION: CT GUIDED BIOPSY OF THE DEEP RIGHT PELVIC SIDEWALL MASS PERFORMED WITHOUT IMMEDIATE COMPLICATION. PATHOLOGY PENDING. IV CONSCIOUS SEDATION Qualifiers PATEINT BEING DISCHARGED WITH ANY OF THE FOLLOWING DIAGNOSIS?: No Stroke Pt being discharged on Anti-thrombolytic therapy?: No Stroke Pt being discharged on Anti-coagulation therapy?: No Stroke Pt being discharged on Statins?: No [place] Pt being discharged on Aspirin therapy?: No [place] Pt being discharged on Statins?: No [place] Pt discharged ACEI/ARBS?: No HF Pt being discharged on ACEI for LVEF less than 40%?: No HF Pt being discharged on ARBS for LVEF less than 40%?: No HF Pt with Afib discharged with Warfarin?: No HF Pt discharged on evidence-based Beta Debbie:: No
[2017-06-04] MEDS: SIMVASTATIN 10 MG TABLET PO SCH (22:02)
[2017-06-05] MEDS: OXYCODONE-ACETAMINOPHEN 5-325 MG TABLET PO PRN ×2 (04:16→10:09)
[2017-06-05 09:12] VITALS: BP 122/96
[2017-06-05] MEDS: METOPROLOL TARTRATE 25 MG TABLET PO SCH (09:20)
[2017-06-05] MEDS: FERROUS SULFATE 325 MG TABLET PO SCH (09:21)
[2017-06-05] MEDS: POTASSIUM CHLORIDE 20 MEQ/15 ML UDCUP PO SCH (09:22)
[2017-06-05] MEDS: CYANOCOBALAMIN (VITAMIN B-12) INJ 1000 MCG/1 ML VIAL IM SCH (09:23)
--- NOTE | 2017-06-05 12:22 | Progress Note ---
Provider Note Provider Note: The patient was seen at the bedside this morning. She expressed no complaints in terms of chest pain or shortness of breath. However, she did notify me that she learned yesterday evening that she would only have a one way ride paid for to get to [place] for her 815 appointment this morning. Therefore she canceled the Service and the appointment. She is quite frustrated but has agreed to call and reschedule the appointment with the urologist tomorrow. In addition to this she has plans to call the free clinic here in [place] tomorrow morning to schedule an outpatient appointment for general follow-up. She does have a ride home today who is waiting for her at the bedside. Vital signs: Stable GENERAL: In general this is a well-developed well-nourished appearing elderly white female resting in her recliner currently in no acute distress HEART: Regular rate and rhythm. No murmurs, rubs or gallops. LUNGS: Clear to auscultation bilaterally with equal rise and fall of the chest. ABDOMEN: Soft, nontender, nondistended with normoactive bowel sounds EXTREMETIES: No clubbing, cyanosis. Trace edema 2+ peripheral pulses bilaterally. NEURO: Awake, alert and oriented 3. Cranial nerves II through XII are grossly intact. Assessment and plan: No changes in assessment and plan as per discharge summary. Please see yesterday's discharge summary note for details. The patient has noted that she has 2 prescriptions on her discharge summary for Percocet. One is 5/325 the other is 4 7.5/325. She has corresponding prescriptions for 7.5 mg tablets. I have tried to delete the 5 mg Percocet from her discharge medication list, however, the patient has already been discharge as of yesterday and this cannot be amended. The patient was told to strike this from her discharge summary list. Time spent: 20 minutes.
== END 2017-06-05 14:01 | disposition home health service (06) | DRG 988 ==
LOC: ER 13:46 → INTOOBSV 16:27 → UNDOADMOB 16:27 → EH 16:27 → 3W 17:57 → OBSVTOIN 06-03 07:54 → 4N 06-04 18:51
PROVIDERS: ADMIT Internal Medicine Pulmonary Disease; ATTEND Internal Medicine Pulmonary Disease
PROC: 0W9H3ZX Drainage of Retroperitoneum, Percutaneous Approach, Diagnostic (ICD-10-PCS; principal; 2017-06-04)
PROC: BW20ZZZ Computerized Tomography (CT Scan) of Abdomen (ICD-10-PCS; 2017-06-04)
DX: I25.10 Atherosclerotic heart disease of native coronary artery without angina pectoris (principal); N17.9 Acute kidney failure, unspecified; N13.30 Unspecified hydronephrosis; M25.551 Pain in right hip; I10 Essential (primary) hypertension; E78.00 Pure hypercholesterolemia, unspecified; E87.6 Hypokalemia; K21.9 Gastro-esophageal reflux disease without esophagitis; D64.9 Anemia, unspecified; M16.11 Unilateral primary osteoarthritis, right hip; R19.09 Other intra-abdominal and pelvic swelling, mass and lump; I65.21 Occlusion and stenosis of right carotid artery; R63.4 Abnormal weight loss; I25.2 Old myocardial infarction; Z87.891 Personal history of nicotine dependence; Z85.41 Personal history of malignant neoplasm of cervix uteri; Z68.30 Body mass index [BMI] 30.0-30.9, adult; Z86.73 Personal history of transient ischemic attack (TIA), and cerebral infarction without residual deficits
CPT/HCPCS: 36415; 49180; 70450; 71010; 74176; 77012; 80048; 80053; 80061; 82550; 82553; 82607; 82728; 82746; 83540; 83550; 83735; 84466; 84484; 84702; 85025; 85045; 85610; 85730; 86304; 88173; 88305; 88341; 88342; 93005; 93010; 93306; 93880; 99291; G0378; J2250; J3010; J3420; J3490; J7030

== ENCOUNTER 2017-06-12 15:37 | Emergency (ER) | payer OTHER ==
--- NOTE | 2017-06-12 16:02 | ER Document Report ---
ED Medical Screen (RME) - General Chief Complaint: Swelling of Lower Extremity Stated Complaint: RIGHT LEG PAIN Time Seen by Provider: 06/12/17 15:56 Mode of Arrival: Wheelchair Information source: Patient TRAVEL OUTSIDE OF THE [place] IN LAST 30 DAYS: No - HPI Patient complains to provider of: Pain and swelling in the right lower extremity Notes: 06/12/17 16:01 Patient is a 57-year-old female who presents to the emergency room today complaining of pain and swelling to her right lower extremity, symptoms have been going on for the past few days, she denies any injury or trauma, reports that she was recently admitted to this hospital and they "found a mass in my abdomen which could be sitting on the sciatic nerve", patient does have slight increased swelling to the right lower extremity, I reviewed her records from her previous visit and she has a adnexal mass on the right side which is consistent with possible malignancy, therefore basic labs were ordered as well as a lower extremity venous Doppler - Related Data Allergies/Adverse Reactions: No Known Allergies Allergy (Verified 06/12/17 15:54) Past Medical History - Social History Family history: Reviewed & Not Pertinent - Past Medical History Cardiac Medical History: Reports: Hx Coronary Artery Disease, Hx Heart Attack, Hx Hypercholesterolemia, Hx Hypertension Pulmonary Medical History: Denies: Hx Asthma, Hx COPD Neurological Medical History: Reports: Hx Cerebrovascular Accident - tia - on ASA now Endocrine Medical History: Denies: Hx Diabetes Mellitus Type 1, Hx Diabetes Mellitus Type 2 Renal/ Medical History: Denies: Hx Peritoneal Dialysis Malignancy Medical History: Reports: Hx Cervical Cancer GI Medical History: Reports: Hx Gastroesophageal Reflux Disease Musculoskeltal Medical History: Reports Hx Musculoskeletal Trauma Traumatic Medical History: Reports: Hx Fractures Past Surgical History: Reports: Hx Cardiac Catheterization, Hx Gynecologic Surgery - CERVICAL Ca, Hx Hysterectomy, Hx Orthopedic Surgery - R ankle, L knee , Other - Orthosis surgeries include right ankle and left knee. - Immunizations Immunizations up to date: Yes Hx Diphtheria, Pertussis, Tetanus Vaccination: Yes - 10/03/13 Physical Exam - Vital signs Vitals: Temp Pulse Resp BP Pulse Ox 99.4 F 109 H 18 148/68 H 97 06/12/17 15:52 06/12/17 15:52 06/12/17 15:52 06/12/17 15:52 06/12/17 15:52 Course - Vital Signs Vital signs: Temp Pulse Resp BP Pulse Ox 99.4 F 109 H 18 148/68 H 97 06/12/17 15:52 06/12/17 15:52 06/12/17 15:52 06/12/17 15:52 06/12/17 15:52
[2017-06-12] MEDS ORDERED: OXYCODONE-ACETAMINOPHEN 5-325 MG TABLET PO ONE ×3 (17:51→20:58)
--- NOTE | 2017-06-12 18:07 | RADIOLOGY REPORT (SQ) ---
EXAM DESCRIPTION: VENOUS UNILATERAL LOWER COMPLETED DATE/TIME: 06/12/2017 5:57 pm REASON FOR STUDY: right leg swelling COMPARISON: None. TECHNIQUE: Dynamic and static louis scale and color images acquired of the right leg venous system. S elected spectral images acquired with additional compression and augmentation maneuvers. The contrala teral common femoral vein and saphenofemoral junction were also imaged. Images stored on PACS. LIMITATIONS: None. FINDINGS: COMMON FEMORAL: Nonpulsatile continuous flow. Normal compression and augmentation. No vis ualized echogenic material on louis scale. No defects on color images. FEMORAL: Normal compression and augmentation. No visualized echogenic material on louis scale. No defe cts on color images. POPLITEAL: Normal compression, augmentation. No visualized echogenic material on louis scale. No defec ts on color images. CALF VESSELS: Normal compression, augmentation. No visualized echogenic material on louis scale. No de fects on color images. GSV and SSV: Normal compression, augmentation. No visualized echogenic material on louis scale. No def ects on color images. ANY DEEP VENOUS INSUFFICIENCY: Not evaluated. ANY EVIDENCE OF POPLITEAL CYST: No. OTHER: No other significant finding. CONTRALATERAL COMMON FEMORAL VEIN AND SAPHENOFEMORAL JUNCTION: Normal phasicity, compression and augmentation. No visualized echogenic material on louis scale. No de fects on color images. IMPRESSION: NO EVIDENCE DVT OR SVT IN THE RIGHT LEG. THERE IS CONTINUOUS FLOW IN THE RIGHT COMMON F EMORAL VEIN WHICH MAY INDICATE PROXIMAL OCCLUSION OR IMPINGEMENT. THE PATIENT HAS A KNOWN MASS IN TH E RIGHT PELVIS. COMMENT: Preliminary report was called by the technologist to the referring clinician's office at th e time of patient visit. TECHNICAL DOCUMENTATION: JOB ID: [id number] [employer]- All Rights Reserved
--- NOTE | 2017-06-12 18:44 | ER Document Report ---
ED Extremity Problem, Lower <NEVAEH HAIR - Last Filed: 06/12/17 20:58> - General Mode of Arrival: Wheelchair Information source: Patient TRAVEL OUTSIDE OF THE [place] IN LAST 30 DAYS: No - HPI Patient complains to provider of: Pain, Swelling Location: Leg Occurred: Other - 3 days Onset/Duration: Persistent Quality of pain: Achy Pain Level: 5 Context: denies: Recent surgery, Recent travel Recent injury: No Associated symptoms: Painful ambulation. denies: Fever, Hurts to breath Exacerbated by: Movement, Walking Relieved by: Nothing <OSKAR SMART - Last Filed: 06/15/17 08:06> - General Chief Complaint: Swelling of Lower Extremity Stated Complaint: RIGHT LEG PAIN Time Seen by Provider: 06/12/17 15:56 Notes: Patient presents complaining of right lower extremity swelling for the past 3 days. Patient states she was recently discharged from the hospital last week and was found to have a mass in her lower pelvis. Patient states that she has a known right side adnexal mass that has possibly metastasized. Patient states that she follows up with the oncologist next week to find out the results of her biopsy. Patient complains of right lower extremity swelling and pain. Patient states that the mass puts pressure on her sciatic nerve and causes her some low back pain as well. Patient states that she was only given a short course of pain medication when she was discharged. Pt feels that she needs pain medicine to manage her symptoms. Patient denies any urinary symptoms at this time. (OSKAR SMART) - Related Data Allergies/Adverse Reactions: No Known Allergies Allergy (Verified 06/12/17 15:54) Past Medical History - General Information source: Patient - Social History Smoking Status: Former Smoker Chew tobacco use (# tins/day): No Frequency of alcohol use: None Drug Abuse: None Occupation: none Lives with: Alone Family History: Reviewed & Not Pertinent, Arthritis, CAD, Hypertension, Malignancy, Thyroid Disfunction, Other - alzheimers - Past Medical History Cardiac Medical History: Reports: Hx Coronary Artery Disease, Hx Heart Attack, Hx Hypercholesterolemia, Hx Hypertension Pulmonary Medical History: Denies: Hx Asthma, Hx COPD Neurological Medical History: Reports: Hx Cerebrovascular Accident - tia - on ASA now Endocrine Medical History: Denies: Hx Diabetes Mellitus Type 1, Hx Diabetes Mellitus Type 2 Renal/ Medical History: Denies: Hx Peritoneal Dialysis Malignancy Medical History: Reports: Hx Cervical Cancer, Other - adnexal mass GI Medical History: Reports: Hx Gastroesophageal Reflux Disease Musculoskeltal Medical History: Reports Hx Musculoskeletal Trauma Traumatic Medical History: Reports: Hx Fractures Past Surgical History: Reports: Hx Cardiac Catheterization, Hx Gynecologic Surgery - CERVICAL Ca, Hx Hysterectomy, Hx Orthopedic Surgery - R ankle, L knee , Other - Orthosis surgeries include right ankle and left knee. - Immunizations Immunizations up to date: Yes Hx Diphtheria, Pertussis, Tetanus Vaccination: Yes - 10/03/13 <OSKAR SMART - Last Filed: 06/15/17 08:06> Review of Systems - Review of Systems Constitutional: No symptoms reported. denies: Fever, Recent illness EENT: No symptoms reported Cardiovascular: No symptoms reported. denies: Chest pain Respiratory: No symptoms reported. denies: Cough, Short of breath Gastrointestinal: No symptoms reported. denies: Abdominal pain, Nausea, Vomiting Genitourinary: Flank pain. denies: Dysuria Female Genitourinary: No symptoms reported Musculoskeletal: Back pain, Leg swelling, Other - RLE pain Skin: No symptoms reported Hematologic/Lymphatic: No symptoms reported Neurological/Psychological: No symptoms reported <OSKAR SMART - Last Filed: 06/15/17 08:06> Physical Exam - General General appearance: Appears well, Alert In distress: None - HEENT Head: Normocephalic, Atraumatic Eyes: Normal Conjunctiva: Normal Nasal: Normal Mouth/Lips: Normal Mucous membranes: Normal Neck: Normal, Supple - Respiratory Respiratory status: No respiratory distress Chest status: Nontender Breath sounds: Normal. No: Rales, Rhonchi, Stridor, Wheezing Chest palpation: Normal - Cardiovascular Rhythm: Regular Heart sounds: S1 appreciated, S2 appreciated Murmur: No - Back Back: CVA tenderness - right. No: Vertebra tenderness - Extremities General upper extremity: Normal inspection, Normal ROM General lower extremity: Tender - RLE, Edema - RLE, Normal color, Normal ROM, Normal temperature - Neurological Neuro grossly intact: Yes Cognition: Normal Tamara Coma Scale Eye Opening: Spontaneous Tamara Coma Scale Verbal: Oriented Tamara Coma Scale Motor: Obeys Commands Tamara Coma Scale Total: 15 - Psychological Associated symptoms: Normal affect, Normal mood - Skin Skin Temperature: Warm Skin Moisture: Dry Skin Color: Normal <OSKAR SMART - Last Filed: 06/15/17 08:06> - Vital signs Vitals: Temp Pulse Resp BP Pulse Ox 99.4 F 109 H 18 148/68 H 97 06/12/17 15:52 06/12/17 15:52 06/12/17 15:52 06/12/17 15:52 06/12/17 15:52 Course - Laboratory Result Diagrams: 06/12/17 19:00 06/12/17 18:17 <NEVAEH HAIR - Last Filed: 06/12/17 20:58> - Laboratory Result Diagrams: 06/12/17 19:00 06/12/17 18:17 <OSKAR SMART - Last Filed: 06/15/17 08:06> - Re-evaluation Re-evalutation: 06/12/17 20:17 pt wants more pain medication, the US shows ? proximal occlusion above the right femoral due to the adnexal mass. call to dr. pearl. Hgb down to 8.6. 2+ DP pulse 06/12/17 20:18 06/12/17 20:[address] Chapin Monzon he is aware that her hemoglobin is 8.6 and did consult with her and told her about the cancer when she was admitted on June 03 and . He recommended sending her home with pain medication and have her call on Thursday to be seen Thursday afternoon. I will also advise her to return to the emergency room if she is feeling worse. (NEVAEH HAIR) 06/12/17 19:13 Bedside report and handoff given to Nevaeh Hair TILE ROOFER (OSKAR SMART) - Vital Signs Vital signs: Temp Pulse Resp BP Pulse Ox 97.8 F 88 18 126/76 H 97 06/12/17 21:33 06/12/17 21:33 06/12/17 20:40 06/12/17 21:33 06/12/17 21:33 - Laboratory Laboratory results interpreted by me: 06/12/17 06/12/17 06/12/17 18:17 19:00 19:15 RBC 2.81 L Hgb 8.6 L Hct 25.1 L RDW 15.8 H Seg Neutrophils % 83.4 H Lymphocytes % 6.5 L Creatinine 1.30 H Est GFR ( Amer) 51 L Est GFR (Non-Af Amer) 42 L Direct Bilirubin 0.6 H Alkaline Phosphatase 128 H Urine Protein 30 H Urine Urobilinogen 2.0 H Ur Leukocyte Esterase MODERATE H Discharge <NEVAEH HAIR - Last Filed: 06/12/17 20:58> <OSKAR SMART - Last Filed: 06/15/17 08:06> - Discharge Clinical Impression: right leg swelling, Right pelvic recurrent cancer, Back pain, right Leg pain, Anemia Condition: Good Disposition: HOME, SELF-CARE Instructions: Leg Pain Nonspecific ([facility]), Low Back Pain ([facility]) Additional Instructions: Call Dr. Kim office on Thursday he wants to see you Thursday Return to the emergency room any concerns Please complete the patient satisfaction survey if you get one, and return it.. If you do not receive a survey, then you can go to the [facility] website, [email or web address] and place your comments about your very good care. Thank you very much. It was a pleasure being your medical provider today. Prescriptions: Oxycodone HCl/Acetaminophen [Percocet 5-325 mg Tablet] 1 - 2 tab PO ASDIR PRN # 30 tablet PRN Reason: Referrals: ALMITA AZEVEDO MD [ACTIVE STAFF] - 06/15/17
[2017-06-12 19:10] LABS: ALANINE AMINOTRANSFERASE 15 U/L (9-52); ALBUMIN 3.9 g/dL (3.5-5.0); ALKALINE PHOSPHATASE 128 U/L (38-126); ANION GAP 14 (5-19); ASPARTATE AMINO TRANSFERASE 19 U/L (14-36); BILIRUBIN,DIRECT 0.6 mg/dL (0.0-0.4); BILIRUBIN,TOTAL 0.8 mg/dL (0.2-1.3); BLOOD UREA NITROGEN 13 mg/dL (7-20); CALCIUM 9.7 mg/dL (8.4-10.2); CARBON DIOXIDE 22 mmol/L (22-30); CHLORIDE 106 mmol/L (98-107); GLUCOSE 95 mg/dL (75-110); POTASSIUM 4.5 mmol/L (3.6-5.0); SODIUM 142.1 mmol/L (137-145); TOTAL PROTEIN 7.5 g/dL (6.3-8.2)
[2017-06-12 19:24] LABS: PROTHROMBIN TIME 14.8 SEC (11.4-15.4)
[2017-06-12 19:25] LABS: PARTIAL THROMBOPLASTIN TIME 35.1 SEC (23.5-35.8)
[2017-06-12 19:40] LABS: ABSOLUTE EOSINOPHILS # (AUTO) 0.3 10^3/uL (0.0-0.6); ABSOLUTE LYMPHOCYTES (AUTO) 0.5 10^3/uL (0.5-4.7); ABSOLUTE MONOCYTES (AUTO) 0.4 10^3/uL (0.1-1.4); ABSOLUTE NEUT (AUTO) 6.5 10^3/uL (1.7-8.2); BASOPHILS % (AUTO) 0.6 % (0-2); EOSINOPHILS % (AUTO) 4.4 % (0-6); HEMATOCRIT 25.1 % (36.0-47.0); HEMOGLOBIN 8.6 g/dL (12.0-15.5); HGB HCT DIFFERENCE 0.7; LYMPHOCYTES % (AUTO) 6.5 % (13-45); MEAN CORPUSCULAR HEMOGLOBIN 30.6 pg (27.0-33.4); MEAN CORPUSCULAR HGB CONC 34.3 g/dL (32.0-36.0); MEAN CORPUSCULAR VOLUME 89 fl (80-97); MONOCYTES % (AUTO) 5.1 % (3-13); RED BLOOD COUNT 2.81 10^6/uL (3.72-5.28); RED CELL DISTRIBUTION WIDTH 15.8 % (11.5-14.0); SEGMENTED NEUTROPHILS % (AUTO) 83.4 % (42-78); WHITE BLOOD COUNT 7.8 10^3/uL (4.0-10.5)
[2017-06-12 19:46] LABS: APPEARANCE,URINE SLIGHTLY-CLOUDY; BILIRUBIN,URINE NEGATIVE (NEGATIVE); GLUCOSE, URINE NEGATIVE (NEGATIVE); KETONES,URINE NEGATIVE (NEGATIVE); LEUKOCYTE ESTERASE,URINE MODERATE (NEGATIVE); NITRITE,URINE NEGATIVE (NEGATIVE); PROTEIN,URINE 30 mg/dL (NEGATIVE)
[2017-06-12] MEDS ORDERED: HYDROCODONE/ACETAMINOPHEN 5-325 MG 6 TAB/DSPK PO PRN (20:58)
[2017-06-12 21:34] VITALS: BP 126/76
== END 2017-06-12 21:34 | disposition home or self-care (01) ==
LOC: ER 15:37
DX: M79.604 Pain in right leg (principal); D64.9 Anemia, unspecified; M54.9 Dorsalgia, unspecified; M79.89 Other specified soft tissue disorders; R10.2 Pelvic and perineal pain; Z87.891 Personal history of nicotine dependence; Z85.53 Personal history of malignant neoplasm of renal pelvis
CPT/HCPCS: 36415; 80053; 81001; 85025; 85610; 85730; 93971; 99284

== ENCOUNTER 2017-06-23 11:40 | Day surgery (SDC) | payer MEDICAID, OTHER ==
[2017-06-23 11:35] LABS: HEMATOCRIT 27.7 % (36.0-47.0); HEMOGLOBIN 9.3 g/dL (12.0-15.5); HGB HCT DIFFERENCE 0.2; MEAN CORPUSCULAR HEMOGLOBIN 29.8 pg (27.0-33.4); MEAN CORPUSCULAR HGB CONC 33.4 g/dL (32.0-36.0); MEAN CORPUSCULAR VOLUME 89 fl (80-97); RED BLOOD COUNT 3.11 10^6/uL (3.72-5.28); RED CELL DISTRIBUTION WIDTH 16.1 % (11.5-14.0); WHITE BLOOD COUNT 8.1 10^3/uL (4.0-10.5)
[~2017-06-23 11:40] MED LIST: BACITRACIN INJ 50,000 UNIT VIAL ONE; CEFAZOLIN 1 GM/D5W RTU 1 GM/50 ML RTUPB IV PRN; DEXTROSE 5%-1/2 NORMAL SALINE 1,000 ML IV PRN; FENTANYL CITRATE INJ/PF 100 MCG/2 ML AMPUL ONE; LIDOCAINE 0.5% INJ-PF (5 MG/ML) 50 ML SDV ONE; MIDAZOLAM 2 MG/2 ML INJ ONE
--- NOTE | 2017-06-23 11:56 | RADIOLOGY REPORT (SQ) ---
EXAM DESCRIPTION: CHEST PA/LATERAL COMPLETED DATE/TIME: 06/23/2017 11:34 am REASON FOR STUDY: PRE OP COMPARISON: 06/01/2017. EXAM PARAMETERS: NUMBER OF VIEWS: two views TECHNIQUE: Digital Frontal and Lateral radiographic views of the chest acquired. RADIATION DOSE: NA LIMITATIONS: none FINDINGS: LUNGS AND PLEURA: No opacities, masses or pneumothorax. No pleural effusion. MEDIASTINUM AND HILAR STRUCTURES: No masses or contour abnormalities. HEART AND VASCULAR STRUCTURES: Heart normal size. No evidence for failure. BONES: No acute findings. Degenerative changes in the spine. HARDWARE: None in the chest. OTHER: No other significant finding. IMPRESSION: NO SIGNIFICANT RADIOGRAPHIC FINDING IN THE CHEST. TECHNICAL DOCUMENTATION: JOB ID: [id number] [employer]- All Rights Reserved
[2017-06-23 11:58] LABS: ANION GAP 15 (5-19); BLOOD UREA NITROGEN 16 mg/dL (7-20); CARBON DIOXIDE 23 mmol/L (22-30); CHLORIDE 104 mmol/L (98-107); CREATININE RESULT 1.23 mg/dL (0.52-1.25); GLUCOSE 99 mg/dL (75-110); POTASSIUM 3.7 mmol/L (3.6-5.0); SODIUM 142.2 mmol/L (137-145)
[2017-06-23] MEDS ORDERED: OXYCODONE-ACETAMINOPHEN 5-325 MG TABLET ONE (12:53)
[2017-06-23] MEDS ORDERED: DIAZEPAM 5 MG TABLET ONE (12:53)
--- NOTE | 2017-06-23 14:21 | PDOC DISCHARGE SUMMARY ---
Discharge Summary (SDC) - Discharge Final Diagnosis: #1 cervical cancer. 2. Lymphedema of leg. 3. Hypertension. Date of Surgery: 06/23/17 Discharge Date: 06/23/17 Condition: Fair Treatment or Instructions: Discharge home [after recovery per ASU criteria]. Diet ,as tolerated, when fully awake advance as tolerated. Activities within moderation encouraged. Follow up in my office by appointment in about [1 week]. Call for appointment. Leave wounds [covered], [keep clean and dry, until office visit in 1 week]. Hold of on school/work [until evaluation in office]. Meds per med rec plus Percocet. As needed. May shower [in 48 hrs], [try to keep operated area as dry as possible]. Referrals: LOCALMD,NO [Primary Care Provider] - Discharge Diet: As Tolerated Respiratory Treatments at Home: Deep Breathing/Coughing Discharge Activity: Activity As Tolerated Report the Following to Your Physician Immediately: Shortness of Breath, Unusual Bleeding
--- NOTE | 2017-06-23 14:24 | Operative Report ---
Operative Report DATE OF SURGERY: 06/23/17 PREOPERATIVE DIAGNOSIS: #1 cervical cancer. 2. Lymphedema of leg. 3. Hypertension. POSTOPERATIVE DIAGNOSIS: #1 cervical cancer. 2. Lymphedema of leg. 3. Hypertension. OPERATION: 1. Ultrasound evaluation and real-time access in the right internal jugular vein. 2. Single-lumen Port-A-Cath placed via real-time axis in the right internal vein. 3. Angiogram and interpretation. SURGEON: TATYANA MARTINEZ SHEET CATCHER: None ANESTHESIA: Moderate Sedation TISSUE REMOVED OR ALTERED: Not applicable. COMPLICATIONS: None INTRAOPERATIVE FINDINGS: Of a satisfactory right internal jugular vein port Port -A-Cath. Approximately 1.2 cm in diameter. Hard copy rock recording of the pain appearance made. Satisfactory position of the catheter with the tip just down in the right atrium. Easy egress of blood and ingress of heparinized solution. Contrast angiogram demonstrated smooth flow of contrast through the right atrium. A spot film of the right apex of the lung looks fine at the end of the procedure. PROCEDURE: After obtaining informed consent, the patient was taken to the [operating room] and positioned supine. The [right] neck and chest were prepared with chlorhexidine and draped out with sterile linen. After the " universal timeout ", in which it was verified that the patient continued to receive antibiotic, the procedure commenced. A steriley sheathed ultrasound probe was used to evaluate the [right] internal jugular vein. Local anesthesia was infiltrated adjacent to the probe. Access into the [right] internal jugular vein was obtained using a micropuncture needle, followed by micropuncture wire and then a micropuncture catheter. This was followed by introduction of a 0.035 guidewire the tip of which was placed down into the inferior vena cava . The port sites was marked , locally anesthetized and incision made. Dissection now proceeded to the deep subcutaneous subcutaneous tissues so that a pocket for the port was made. Meticulous hemostasis was secured and the catheter was tunneled between the 2 incisions. Proximally, the catheter was now positioned using a peel-away sheath. Distally the catheter was tailored to an appropriate length and then mated to the port using the contained fixating device. The port was now placed in the pocket and the catheter optimally positioned. The port was accessed with a Graff needle and an angiogram done under digital subtraction. The findings as dictated. With adequate and satisfactory positioning, both lumens of the chamber were irrigated with heparinized solution. The wounds were now closed using interrupted 3-0 PDS to the subcutaneous tissues and a continuous subcuticular suture of 4-0 Monocryl to the skin. These are reinforced with Steri-Strips over benzoin and then dressings applied. Time: 1.1 Minute. Dose: 2.94 m Gy Contrast: 5 mls. Isovue 300. Copies of the dictated operative report for Dr. Tatyana Becerra MD.
[2017-06-23 15:18] VITALS: BP 123/64
--- NOTE | 2017-06-23 16:29 | RADIOLOGY REPORT (SQ) ---
EXAM DESCRIPTION: PORTACATH INSERTION COMPLETED DATE/TIME: 06/23/2017 4:15 pm REASON FOR STUDY: C53.0 C53.0 MALIGNANT NEOPLASM OF ENDOCERVIX COMPARISON: None. FLUOROSCOPY TIME: 1.1 minute. 3 images saved to PACS. TECHNIQUE: Intra-operative images acquired during surgical procedure to evaluate progress. NUMBER OF IMAGES: 3 images. LIMITATIONS: None. FINDINGS: Images of the chest acquired during catheter placement. IMPRESSION: IMAGE(S) OBTAINED DURING PROCEDURE. COMMENT: Quality ID [id number]: Final reports for procedures using fluoroscopy that document radiation exp osure indices, or exposure time and number of fluorographic images (if radiation exposure indices are not available) Please consult full operative report of the attending physician for description of the procedure. TECHNICAL DOCUMENTATION: JOB ID: [id number] [employer]- All Rights Reserved
== END 2017-06-23 15:06 | disposition home or self-care (01) ==
LOC: SC 11:40
PROVIDERS: ATTEND Surgery
PROC: 05HM33Z Insertion of Infusion Device into Right Internal Jugular Vein, Percutaneous Approach (ICD-10-PCS; principal; 2017-06-23)
DX: C53.0 Malignant neoplasm of endocervix (principal); I10 Essential (primary) hypertension; E78.00 Pure hypercholesterolemia, unspecified; I89.0 Lymphedema, not elsewhere classified; Z87.891 Personal history of nicotine dependence; Z79.899 Other long term (current) drug therapy; Z79.01 Long term (current) use of anticoagulants; Z79.891 Long term (current) use of opiate analgesic
CPT/HCPCS: 36415; 85027; 80048; 36561; 76937; 77001; 71020; C1788; C1752; Q9967; J2250; J3490 ×2; J0690; J3010; J1644

== ENCOUNTER → 2017-06-23 | Outpatient (CLI) | payer OTHER ==
--- NOTE | 2017-06-24 13:38 | RADIOLOGY REPORT (SQ) ---
EXAM DESCRIPTION: PET CT SKULL/THIGH COMPLETED DATE/TIME: 06/23/2017 6:13 pm REASON FOR STUDY: MALIGNANT NEOPLASM OF ENDOCERVIX C53.0 MALIGNANT NEOPLASM OF ENDOCERVIX COMPARISON: Right-sided pelvic mass biopsy 06/04/2017 CT abdomen pelvis 06/02/2017 RADIONUCLIDE AND DOSE: 12 mCi F18 FDG The route of agent administration: Intravenous FASTING BLOOD SUGAR: 110 mg/dl CONTRAST TYPE AND DOSE: No CT contrast given. TECHNIQUE: Blood glucose level was verified. Above dose of FDG was injected intravenously. 2-D seg mented attenuation correction images were obtained from the base of the skull to the midthighs. Nonc ontrast CT images were obtained for attenuation correction and fusion with emission images. CT image s were performed without oral or intravenous contrast and are not sensitive for parenchymal lesions. A series of overlapping emission PET images were obtained. Images reviewed and manipulated at [facility] work station by the radiologist. Images stored on PACS. LIMITATIONS: None. FINDINGS: HEAD AND NECK: There is asymmetric increased uptake in the left pharyngeal tonsil without discrete mass. Left pharyngeal tonsil activity 7.6 SUV. No cervical adenopathy. CHEST: The 12 to 13 mm nodule is present in the right posterior costophrenic sulcus on axial image 10 6, with SUV of 2.2. This may be a metastatic nodule. ABDOMEN AND PELVIS: In the deep right pelvis, a 6.6 x 5 cm right pelvic sidewall/adnexal mass is pres ent causing right ureteral obstruction. There is right hydronephrosis and hydroureter, with poor rig ht kidney function. Around the periphery of the mass, hypermetabolic foci are present suggesting of tumor with central necrosis. SUV along the periphery of the mass is SUV of 6. No right pelvic or inguinal adenopathy. No para-aortic adenopathy. PROXIMAL LOWER EXTREMITIES: No areas of abnormal metabolic activity in the soft tissues of the lower extremities. BONES: No abnormal metabolic activity in the visualized skeleton. ADDITIONAL CT FINDINGS: Small hiatal hernia. Right permanent central line tip superior vena cava. C alcified granuloma left posterior lung base. OTHER: Liver background SUV 2.1. Blood pool background SUV 1.9 IMPRESSION: Pelvic malignant mass previously biopsied. No pelvic or retroperitoneal malignant adeno tino. Mass obstructs the right ureter with right hydronephrosis and hydroureter. 12 to 13 mm metabolically active nodule in the right posterior costophrenic sulcus. TECHNICAL DOCUMENTATION: JOB ID: [id number] [employer]- All Rights Reserved
== END ==
LOC: RAD 15:13
PROVIDERS: ATTEND Internal Medicine
DX: C53.0 Malignant neoplasm of endocervix (principal)
CPT/HCPCS: 78815; A9552

== ENCOUNTER 2017-06-30 08:20 | Outpatient (CLI) | payer MEDICAID, OTHER ==
[~2017-06-30 08:20] MED LIST changes: -BACITRACIN INJ 50,000 UNIT VIAL ONE; +BEVACIZUMAB IV PRN; +CARBOPLATIN IV PRN; -CEFAZOLIN 1 GM/D5W RTU 1 GM/50 ML RTUPB IV PRN; -DEXTROSE 5%-1/2 NORMAL SALINE 1,000 ML IV PRN; +DIPHENHYDRAMINE HCL 50 MG/ML VIAL IV PRN; +FAMOTIDINE INJ/PF 20 MG/2 ML SDV IV PRN; -FENTANYL CITRATE INJ/PF 100 MCG/2 ML AMPUL ONE; -LIDOCAINE 0.5% INJ-PF (5 MG/ML) 50 ML SDV ONE; -MIDAZOLAM 2 MG/2 ML INJ ONE; +NORMAL SALINE 250 ML IV PRN; +NORMAL SALINE IV PRN; +ONDANSETRON HCL/PF 16 MG, DEXAMETHASONE SOD PHOSPHATE 10 MG in NORMAL SALINE 50 ML IV PRN; +PACLITAXEL SEMI SYNTHETIC IV PRN
[2017-06-30 08:53] VITALS: BP 130/73
== END 2017-06-30 15:29 | disposition home or self-care (01) ==
LOC: II 08:20 → 5TH 08:49 → II 15:29
PROVIDERS: ATTEND Internal Medicine
PROC: 3E0430M Introduction of Antineoplastic, Monoclonal Antibody, into Central Vein, Percutaneous Approach (ICD-10-PCS; principal; 2017-06-30)
PROC: 3E04305 Introduction of Other Antineoplastic into Central Vein, Percutaneous Approach (ICD-10-PCS; 2017-06-30)
PROC: 3E043GC Introduction of Other Therapeutic Substance into Central Vein, Percutaneous Approach (ICD-10-PCS; 2017-06-30)
DX: Z51.11 Encounter for antineoplastic chemotherapy (principal); C53.0 Malignant neoplasm of endocervix
CPT/HCPCS: 96413; 96415; 96375; J1200; J9045 ×2; J2405; J7040; J9267; S0028; J1100; J9035; 96367; 96417

== ENCOUNTER 2017-07-01 14:52 | Outpatient (CLI) | payer MEDICAID, OTHER ==
[~2017-07-01 14:52] MED LIST changes: -BEVACIZUMAB IV PRN; -CARBOPLATIN IV PRN; -DIPHENHYDRAMINE HCL 50 MG/ML VIAL IV PRN; -FAMOTIDINE INJ/PF 20 MG/2 ML SDV IV PRN; -NORMAL SALINE 250 ML IV PRN; -NORMAL SALINE IV PRN; -ONDANSETRON HCL/PF 16 MG, DEXAMETHASONE SOD PHOSPHATE 10 MG in NORMAL SALINE 50 ML IV PRN; -PACLITAXEL SEMI SYNTHETIC IV PRN; +PEGFILGRASTIM INJ 6 MG/0.6 ML DISP.SYRIN SUBCUT PRN
[2017-07-01] MEDS ORDERED: PEGFILGRASTIM INJ 6 MG/0.6 ML DISP.SYRIN SUBCUT PRN (15:00)
== END 2017-07-01 16:00 | disposition home or self-care (01) ==
LOC: 5TH 14:52 → II 14:52
PROVIDERS: ATTEND Internal Medicine
PROC: 3E013GC Introduction of Other Therapeutic Substance into Subcutaneous Tissue, Percutaneous Approach (ICD-10-PCS; principal; 2017-07-01)
DX: Z76.89 Persons encountering health services in other specified circumstances (principal); C53.0 Malignant neoplasm of endocervix; G89.3 Neoplasm related pain (acute) (chronic); Z79.899 Other long term (current) drug therapy; Z79.02 Long term (current) use of antithrombotics/antiplatelets; Z86.718 Personal history of other venous thrombosis and embolism; Z86.73 Personal history of transient ischemic attack (TIA), and cerebral infarction without residual deficits
CPT/HCPCS: 96372; J2505

== ENCOUNTER 2017-07-21 09:21 | Outpatient (CLI) | payer MEDICAID ==
[~2017-07-21 09:21] MED LIST changes: +BEVACIZUMAB IV PRN; +CARBOPLATIN IV PRN; +DIPHENHYDRAMINE HCL 50 MG/ML VIAL IV PRN; +FAMOTIDINE INJ/PF 20 MG/2 ML SDV IV PRN; +NORMAL SALINE 250 ML IV PRN; +NORMAL SALINE IV PRN; +ONDANSETRON HCL/PF 16 MG, DEXAMETHASONE SOD PHOSPHATE 10 MG in NORMAL SALINE 50 ML IV PRN; +PACLITAXEL SEMI SYNTHETIC IV PRN; -PEGFILGRASTIM INJ 6 MG/0.6 ML DISP.SYRIN SUBCUT PRN
[2017-07-21 10:59] VITALS: BP 146/74
== END 2017-07-21 15:33 | disposition home or self-care (01) ==
LOC: II 09:21 → 5TH 09:25 → II 15:33
PROVIDERS: ATTEND Internal Medicine
PROC: 3E0430M Introduction of Antineoplastic, Monoclonal Antibody, into Central Vein, Percutaneous Approach (ICD-10-PCS; principal; 2017-07-21)
PROC: 3E043GC Introduction of Other Therapeutic Substance into Central Vein, Percutaneous Approach (ICD-10-PCS; 2017-07-21)
PROC: 3E04305 Introduction of Other Antineoplastic into Central Vein, Percutaneous Approach (ICD-10-PCS; 2017-07-21)
DX: Z51.11 Encounter for antineoplastic chemotherapy (principal); C53.0 Malignant neoplasm of endocervix
CPT/HCPCS: 96413; 96415; 96367; 96375; J1200; J9045 ×2; J2405; J7040; J9267; S0028; J1100; J9035; 96417; J1642

== ENCOUNTER → 2017-09-04 | Outpatient (CLI) | payer MEDICAID ==
--- NOTE | 2017-09-04 11:27 | RADIOLOGY REPORT (SQ) ---
EXAM DESCRIPTION: CT CHEST WITH COMPLETED DATE/TIME: 09/04/2017 8:51 am REASON FOR STUDY: ENDOCERVIX CA (C53.0) C53.0 MALIGNANT NEOPLASM OF ENDOCERVIX COMPARISON: PET-CT scan dated 06/23/2017 TECHNIQUE: CT scan of the chest performed using helical scanning technique with dynamic intravenous contrast injection. Images reviewed with lung, soft tissue and bone windows. Reconstructed coronal and sagittal MPR images reviewed. All images stored on PACS. All CT scanners at this facility use dose modulation, iterative reconstruction, and/or weight based d osing when appropriate to reduce radiation dose to as low as reasonably achievable (ALARA). [facility]: Dose Right [facility]: CareDose [facility]: Dose Right [facility]: Teradose 4D [facility]: [employer] CONTRAST TYPE AND DOSE: 80 mL Isovue 370 RENAL FUNCTION: Creatinine 0.5 RADIATION DOSE: . LIMITATIONS: None. FINDINGS: LUNGS AND PLEURA: No opacities, nodules, masses. No pneumothorax. No effusions. The prev iously described small nodule in the right posterior sulcus is not identified. HILAR AND MEDIASTINAL STRUCTURES: No identified masses or abnormal nodes. HEART AND VASCULAR STRUCTURES: No aneurysm or dissection. No central pulmonary emboli. No pericardi al effusion. HARDWARE: Port-A-Cath is identified with its tip in superior vena cava P UPPER ABDOMEN: See results under abdominal CT scan THYROID AND OTHER SOFT TISSUES: No masses. No adenopathy. BONES: No significant finding. OTHER: No other significant finding. IMPRESSION: No evidence for intrathoracic metastatic disease. Other findings as noted above TECHNICAL DOCUMENTATION: JOB ID: [id number] Quality ID # 436: Final reports with documentation of one or more dose reduction techniques (e.g., Au tomated exposure control, adjustment of the mA and/or kV according to patient size, use of iterative reconstruction technique) 2010 [employer]- All Rights Reserved
--- NOTE | 2017-09-04 11:39 | RADIOLOGY REPORT (SQ) ---
EXAM DESCRIPTION: CT ABD/PELVIS WITH IV ORAL COMPLETED DATE/TIME: 09/04/2017 8:51 am REASON FOR STUDY: ENDOCERVIX CA (C53.0) C53.0 MALIGNANT NEOPLASM OF ENDOCERVIX COMPARISON: PET-CT scan dated 06/23/2017 TECHNIQUE: CT scan of the abdomen and pelvis performed with intravenous and oral contrast using lalo keesha scanning technique with dynamic intravenous contrast injection. Images reviewed with lung, soft t issue, and bone windows. Reconstructed coronal and sagittal MPR images reviewed. Delayed images for e valuation of the urinary system also acquired. All images stored on PACS. All CT scanners at this facility use dose modulation, iterative reconstruction, and/or weight based d osing when appropriate to reduce radiation dose to as low as reasonably achievable (ALARA). [facility]: Dose Right [facility]: CareDose [facility]: Dose Right [facility]: Teradose 4D [facility]: [employer] CONTRAST TYPE AND DOSE: contrast/concentration: Isovue 370.00 mg/ml; Total Contrast Delivered: 79.0 ml; Total Saline Delivered: 68.0 ml RENAL FUNCTION: Creatinine 0.5 RADIATION DOSE: CT Rad equipment meets quality standard of care and radiation dose reduction techniq ues were employed. CTDIvol: 5.3 - 9.0 mGy. DLP: 1076 mGy-cm. . LIMITATIONS: None. FINDINGS: LOWER CHEST: See results under chest CT scan LIVER: Normal size. A small enhancing mass is identified in the right lobe of the liver measuring 1. 3 cm in diameters with imaging characteristics most consistent with an hemangioma. No abnormal metab olic activity at this site was identified on the previous PET-CT scan. No dilated ducts. SPLEEN: Normal size. No focal lesions. PANCREAS: No masses. No significant calcifications. No adjacent inflammation or peripancreatic fluid collections. Pancreatic duct not dilated. GALLBLADDER: Calcified gallstone is identified. No inflammatory changes to suggest cholecystitis. ADRENAL GLANDS: No significant masses or asymmetry. RIGHT KIDNEY AND URETER: No solid masses. No significant calcifications. The previously described hydronephrosis of the right kidney and dilatation of the right ureter extending into the pelvis is a gain identified. LEFT KIDNEY AND URETER: No solid masses. No significant calcifications. No hydronephrosis or hydr oureter. AORTA AND VESSELS: No aneurysm. No dissection. Renal arteries, SMA, celiac without stenosis. RETROPERITONEUM: No retroperitoneal adenopathy, hemorrhage or masses. BOWEL AND PERITONEAL CAVITY: No obstruction. No visualized masses. No free fluid. No inflammatory ch anges or thickening of bowel wall. APPENDIX: Not identified PELVIS: A heterogeneously enhancing mass is identified in the right pelvis extending to the right pel selena sidewall measuring 5.6 x 4.5 cm in diameters which correlates with the mass identified on the pre vious PET-CT scan. The mass measures slightly smaller on the current study. Again the mass is felt to be responsible for the hydronephrosis of the right kidney and dilatation of the right ureter exten ding into the pelvis. ABDOMINAL WALL: No masses. No hernias. BONES: No significant or acute findings. OTHER: No other significant finding. IMPRESSION: A heterogeneous enhancing mass is identified in the right pelvis extending to the right pelvic sidewall as noted above which correlates with a mass identified on the previous PET-CT scan. The mass measures slightly smaller on the current study. Again there is hydronephrosis of the right kidney and dilatation of the right ureter extending into the right pelvis. Small enhancing mass is i dentified in the right lobe of the liver with imaging characteristics most consistent with an hemangi lizzie. Small calcified gallstone. Other findings as noted above TECHNICAL DOCUMENTATION: JOB ID: [id number] Quality ID # 436: Final reports with documentation of one or more dose reduction techniques (e.g., Au tomated exposure control, adjustment of the mA and/or kV according to patient size, use of iterative reconstruction technique) 2010 [employer]- All Rights Reserved
== END ==
LOC: RAD 07:44
PROVIDERS: ATTEND Internal Medicine
DX: C53.0 Malignant neoplasm of endocervix (principal)
CPT/HCPCS: 71260; 74177; 82565

== ENCOUNTER 2017-09-29 11:35 | Outpatient (CLI) | payer MEDICAID ==
[~2017-09-29 11:35] MED LIST changes: +ACETAMINOPHEN 325 MG TABLET PO PRN; -BEVACIZUMAB IV PRN; -CARBOPLATIN IV PRN; +DIPHENHYDRAMINE HCL 25 MG CAPSULE PO PRN; -DIPHENHYDRAMINE HCL 50 MG/ML VIAL IV PRN; -FAMOTIDINE INJ/PF 20 MG/2 ML SDV IV PRN; -NORMAL SALINE 250 ML IV PRN; -NORMAL SALINE IV PRN; -ONDANSETRON HCL/PF 16 MG, DEXAMETHASONE SOD PHOSPHATE 10 MG in NORMAL SALINE 50 ML IV PRN; -PACLITAXEL SEMI SYNTHETIC IV PRN
[2017-09-29] MEDS ORDERED: NORMAL SALINE 250 ML IV PRN (12:06)
[2017-09-29 12:08] LABS: WHITE BLOOD COUNT 4.3 10^3/uL (4.0-10.5)
[2017-09-29 12:09] LABS: HEMATOCRIT 23.2 % (36.0-47.0); MEAN CORPUSCULAR HEMOGLOBIN 33.5 pg (27.0-33.4); MEAN CORPUSCULAR HGB CONC 34.7 g/dL (32.0-36.0); RED CELL DISTRIBUTION WIDTH 28.7 % (11.5-14.0)
[2017-09-29 12:10] LABS: MEAN CORPUSCULAR VOLUME 97 fl (80-97)
[2017-09-29 12:25] LABS: PLATELET COUNT 29 10^3/uL (150-450)
[2017-09-29 15:43] VITALS: BP 133/55
== END 2017-09-29 16:03 | disposition home or self-care (01) ==
LOC: II 11:35 → 5TH 11:42 → II 16:03
PROVIDERS: ATTEND Internal Medicine
PROC: 30233N1 Transfusion of Nonautologous Red Blood Cells into Peripheral Vein, Percutaneous Approach (ICD-10-PCS; principal; 2017-09-29)
DX: D64.9 Anemia, unspecified (principal)
CPT/HCPCS: 86900; 86901; 36415; 36430; 86850; 86920; P9016; J3490 ×2

== ENCOUNTER → 2017-12-01 | Outpatient (CLI) | payer MEDICAID ==
--- NOTE | 2017-12-01 12:25 | RADIOLOGY REPORT (SQ) ---
EXAM DESCRIPTION: CT CHEST WITHOUT COMPLETED DATE/TIME: 12/01/2017 10:54 am REASON FOR STUDY: ENDOCERVICAL CA (C53.0) C53.0 MALIGNANT NEOPLASM OF ENDOCERVIX COMPARISON: 09/04/2017 TECHNIQUE: CT scan performed of the chest without intravenous contrast. Images reviewed with lung, soft tissue and bone windows. Reconstructed coronal and sagittal MPR images reviewed. All images st ored on PACS. All CT scanners at this facility use dose modulation, iterative reconstruction, and/or weight based d osing when appropriate to reduce radiation dose to as low as reasonably achievable (ALARA). [facility]: Dose Right [facility]: CareDose [facility]: Dose Right [facility]: Teradose 4D [facility]: [employer] RADIATION DOSE: mGy. LIMITATIONS: No contrast due decreased calculated GFR. FINDINGS: LUNGS AND PLEURA: Calcified granuloma left lower lobe. Stable 3 mm nodule right lower lob e. No suspicious nodules. No effusions. HILAR AND MEDIASTINAL STRUCTURES: No identified masses or abnormal nodes. No obvious aneurysm. HEART AND VASCULAR STRUCTURES: No aneurysm. No pericardial effusion. UPPER ABDOMEN: See separate report of the CT of the abdomen. THYROID AND OTHER SOFT TISSUES: No masses. No adenopathy. BONES: No acute findings. HARDWARE: None in the chest. OTHER: Right-sided port with tip in the SVC. IMPRESSION: No evidence of metastatic disease. TECHNICAL DOCUMENTATION: JOB ID: [id number] Quality ID # [id number]: Final reports with documentation of one or more dose reduction techniques (e.g., Au tomated exposure control, adjustment of the mA and/or kV according to patient size, use of iterative reconstruction technique) 2010 [employer]- All Rights Reserved Reading location - IP/workstation name: [email or web address]
--- NOTE | 2017-12-01 12:33 | RADIOLOGY REPORT (SQ) ---
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 Images reviewed with lung, soft tissue, and bone windows. Reconstructed coronal and sagittal MPR i mages reviewed. All images stored on PACS. All CT scanners at this facility use dose modulation, iterative reconstruction, and/or weight based d osing when appropriate to reduce radiation dose to as low as reasonably achievable (ALARA). [facility]: Dose Right [facility]: CareDose [facility]: Dose Right [facility]: Teradose 4D [facility]: [employer] RADIATION DOSE: CT Rad equipment meets quality standard of care and radiation dose reduction techniq ues were employed. CTDIvol: 5.7 - 8.4 mGy. DLP: 631 mGy-cm. mGy. LIMITATIONS: Contrast could not be administered due to decreased calculated GFR. FINDINGS: LOWER CHEST: See separate report of the CT of the chest. NON-CONTRASTED LIVER, SPLEEN, ADRENALS: Stable liver lesion, probable hemangioma. PANCREAS: No masses. No peripancreatic inflammatory changes. GALLBLADDER: Gallstones. No inflammatory changes to suggest cholecystitis. RIGHT KIDNEY AND URETER: No suspicious masses. Assessment limited by lack of IV contrast. No signif icant calcifications. Chronic hydronephrosis. LEFT KIDNEY AND URETER: No suspicious masses. Assessment limited by lack of IV contrast. No signifi cant calcifications. No hydronephrosis or hydroureter. AORTA AND RETROPERITONEUM: No aneurysm. No retroperitoneal masses or adenopathy. BOWEL AND PERITONEAL CAVITY: No obvious masses or inflammatory changes. No free fluid. APPENDIX: Not visualized. PELVIS, BLADDER, AND ABDOMINAL WALL: See above. Normal urinary bladder. BONES: No acute findings. OTHER: No other significant finding. IMPRESSION: Right pelvic sidewall mass. Chronic right hydronephrosis. No significant change. TECHNICAL DOCUMENTATION: JOB ID: [id number] Quality ID # [id number]: Final reports with documentation of one or more dose reduction techniques (e.g., Au tomated exposure control, adjustment of the mA and/or kV according to patient size, use of iterative reconstruction technique) 2010 [employer]- All Rights Reserved Reading location - IP/workstation name: [email or web address]
== END ==
LOC: RAD 07:44
PROVIDERS: ATTEND Internal Medicine
DX: C53.0 Malignant neoplasm of endocervix (principal); R19.00 Intra-abdominal and pelvic swelling, mass and lump, unspecified site
CPT/HCPCS: 71250; 74176; 82565

== ENCOUNTER → 2017-12-29 | Outpatient (CLI) | payer MEDICAID ==
--- NOTE | 2017-12-29 16:08 | RADIOLOGY REPORT (SQ) ---
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 Coronal T2/ HASTE imaging. LIMITATIONS: None. FINDINGS: VISUALIZED UPPER ABDOMEN: There is marked right hydronephrosis and hydroureter down to the right pelvis, where a complex right pelvic sidewall mass is present, unchanged from CT exam 12/01/2017 . This is best shown on sagittal T2 image 3, and coronal images 3-9. SEGMENTATION: No transitional anatomy. The lowest well-developed disc space is labeled L5-S1. ALIGNMENT: Minimal grade 1 anterolisthesis of L5 over S1 VERTEBRAE: No compression deformities. BONE MARROW: Diffuse fatty infiltration throughout the marrow from L2 through the sacrum from prior r adiation therapy. DISC SIGNAL: Diffuse decreased T2 weighted intervertebral disc signal. Disc space loss of height at T11-12 through L1-2. POSTERIOR ELEMENTS: Left L5 spondylolysis HARDWARE: None in the spine. CORD AND CONUS: Normal in size and signal intensity. Conus at the T12-L1 level. L1-L2: Mild right foraminal narrowing from facet and uncovertebral hypertrophy. No central or left f oraminal narrowing. L2-L3: Minimal posterior disc bulging, mild bilateral facet hypertrophy. No central canal or signifi cant foraminal narrowing. L3-L4: Mild diffuse posterior disc bulge, moderate bilateral facet and ligament hypertrophy. No sign ificant central canal or right foraminal narrowing. Mild left foraminal narrowing. L4-L5: Mild posterior disc bulging, moderate bilateral facet hypertrophy. No central or foraminal st enosis. L5-S1: Grade 1 anterolisthesis of L5 over S1 due to left-sided spondylolysis. There is no central ca nal narrowing. Mild right foraminal narrowing, moderate left foraminal narrowing with partial efface ment of the fat around the exiting left L5 nerve root. LOWER THORACIC: Incompletely imaged. No stenosis seen. SACRUM: Visualized upper sacrum intact. OTHER: Results called to Dr. Lu IMPRESSION: Post radiation change in the lumbar spine Bilateral foraminal narrowing left greater than right at L5-S1 Right pelvic sidewall mass with stenosis of the distal right ureter. Marked right hydronephrosis and hydroureter. Right pelvic sidewall mass may involve the lumbar plexus/sciatic nerves. Findings dis cussed with Dr. Lu TECHNICAL DOCUMENTATION: JOB ID: [id number] [employer]- All Rights Reserved Reading location - IP/workstation name: [email or web address]
== END ==
LOC: RAD 14:56
PROVIDERS: ATTEND Internal Medicine Hematology & Oncology
DX: C53.0 Malignant neoplasm of endocervix (principal); M48.07 Spinal stenosis, lumbosacral region; Q62.10 Congenital occlusion of ureter, unspecified; N13.30 Unspecified hydronephrosis
CPT/HCPCS: 72148

== ENCOUNTER 2018-01-28 17:30 | Emergency (ER) | payer MEDICAID ==
[2018-01-28 17:42] VITALS: BP 172/86
--- NOTE | 2018-01-28 19:29 | ER Document Report ---
Doctor's Note Notes: 01/28/18 19:28 I attempted to check on the patient twice since picking up her chart she has not been in the room, I have asked charge nurse if they know where the patient is
== END 2018-01-28 19:30 | disposition left against medical advice (07) ==
LOC: ER 17:30
DX: Z53.21 Procedure and treatment not carried out due to patient leaving prior to being seen by health care provider (principal)

== ENCOUNTER 2018-02-19 19:14 | Emergency (ER) | payer MEDICAID ==
[2018-02-19] MEDS ORDERED: NORMAL SALINE 1000 ML 1,000 ML IV ONE (19:37)
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
[2018-02-19 20:51] LABS: ABSOLUTE EOSINOPHILS # (AUTO) 0.2 10^3/uL (0.0-0.6); ABSOLUTE LYMPHOCYTES (AUTO) 0.8 10^3/uL (0.5-4.7); ABSOLUTE MONOCYTES (AUTO) 0.9 10^3/uL (0.1-1.4); ABSOLUTE NEUT (AUTO) 11.8 10^3/uL (1.7-8.2); BASOPHILS % (AUTO) 0.4 % (0-2); EOSINOPHILS % (AUTO) 1.2 % (0-6); LYMPHOCYTES % (AUTO) 5.7 % (13-45); MEAN CORPUSCULAR HEMOGLOBIN 32.2 pg (27.0-33.4); MEAN CORPUSCULAR HGB CONC 32.8 g/dL (32.0-36.0); MEAN CORPUSCULAR VOLUME 98 fl (80-97); MONOCYTES % (AUTO) 6.4 % (3-13); PLATELET COUNT 222 10^3/uL (150-450); RED BLOOD COUNT 2.25 10^6/uL (3.72-5.28); RED CELL DISTRIBUTION WIDTH 20.9 % (11.5-14.0); SEGMENTED NEUTROPHILS % (AUTO) 86.3 % (42-78); TOTAL CELLS COUNTED % (AUTO) 100 %; WHITE BLOOD COUNT 13.7 10^3/uL (4.0-10.5)
[2018-02-19 20:55] LABS: HEMATOCRIT 22.1 % (36.0-47.0); HEMOGLOBIN 7.2 g/dL (12.0-15.5)
[2018-02-19 21:14] LABS: ALANINE AMINOTRANSFERASE 19 U/L (9-52); ALBUMIN 3.4 g/dL (3.5-5.0); ALKALINE PHOSPHATASE 134 U/L (38-126); ANION GAP 16 (5-19); ASPARTATE AMINO TRANSFERASE 19 U/L (14-36); BILIRUBIN,DIRECT 0.5 mg/dL (0.0-0.4); BILIRUBIN,TOTAL 0.6 mg/dL (0.2-1.3); BLOOD UREA NITROGEN 24 mg/dL (7-20); CARBON DIOXIDE 21 mmol/L (22-30); CHLORIDE 102 mmol/L (98-107); GLUCOSE 140 mg/dL (75-110); POTASSIUM 4.2 mmol/L (3.6-5.0); SODIUM 139.3 mmol/L (137-145)
--- NOTE | 2018-02-19 22:11 | RADIOLOGY REPORT (SQ) ---
EXAM DESCRIPTION: MRI LUMBAR SPINE WITHOUT COMPLETED DATE/TIME: 02/19/2018 9:32 pm REASON FOR STUDY: stool incontinence, hx cancer COMPARISON: 12/29/2017 TECHNIQUE: Sagittal and Axial imaging includes T1, T2, STIR and gradient echo sequences. Coronal T2/ HASTE imaging. LIMITATIONS: None. FINDINGS: No evidence for acute finding. No significant disc protrusion. No spinal stenosis. Ricardo ow signal is unchanged. Severe chronic hydro nephrosis of the right kidney. OTHER: No other significant findings. IMPRESSION: No evidence for acute finding.No spinal stenosis. TECHNICAL DOCUMENTATION: JOB ID: [id number] [place]-72 2010 [employer]- All Rights Reserved Reading location - IP/workstation name: [email or web address]
[2018-02-19] MEDS ORDERED: HYDROMORPHONE HCL INJ/PF 2 MG/ML AMPULE IV ONE (22:47)
[2018-02-19] MEDS ORDERED: METOCLOPRAMIDE HCL INJ/PF 10 MG/2 ML SDV IV ONE (22:47)
[2018-02-19] MEDS ORDERED: NORMAL SALINE 1000 ML 500 ML IV ONE (22:48)
[2018-02-20 02:09] LABS: ANION GAP 12 (5-19); BLOOD UREA NITROGEN 25 mg/dL (7-20); CALCIUM 8.4 mg/dL (8.4-10.2); CARBON DIOXIDE 23 mmol/L (22-30); CHLORIDE 107 mmol/L (98-107); GLUCOSE 119 mg/dL (75-110); POTASSIUM 4.2 mmol/L (3.6-5.0); SODIUM 142.3 mmol/L (137-145)
[2018-02-20 02:33] LABS: APPEARANCE,URINE SLIGHTLY-CLOUDY; BILIRUBIN,URINE NEGATIVE (NEGATIVE); COLOR,URINE YELLOW; GLUCOSE, URINE NEGATIVE (NEGATIVE); KETONES,URINE TRACE mg/dL (NEGATIVE); LEUKOCYTE ESTERASE,URINE NEGATIVE (NEGATIVE); NITRITE,URINE NEGATIVE (NEGATIVE); PROTEIN,URINE NEGATIVE (NEGATIVE); URINE SPECIFIC GRAVITY 1.019
[2018-02-20] MEDS ORDERED: FAMOTIDINE 20 MG TABLET PO ONE (04:45)
[2018-02-20] MEDS ORDERED: ZINC OXIDE 20% OINTMENT 28.35 GM TP ONE (07:24)
[2018-02-20 10:09] VITALS: BP 118/57
== END 2018-02-20 10:13 | disposition home or self-care (01) ==
LOC: ER 19:14
DX: R15.1 Fecal smearing (principal); E86.0 Dehydration; N28.9 Disorder of kidney and ureter, unspecified; C53.9 Malignant neoplasm of cervix uteri, unspecified; Z79.899 Other long term (current) drug therapy; I25.10 Atherosclerotic heart disease of native coronary artery without angina pectoris; E78.00 Pure hypercholesterolemia, unspecified; I10 Essential (primary) hypertension; I25.2 Old myocardial infarction; Z86.73 Personal history of transient ischemic attack (TIA), and cerebral infarction without residual deficits; Z79.82 Long term (current) use of aspirin
CPT/HCPCS: 36591; 99284; 96361; 51701; 96374; 96375; 36415; 83735; 85025; 80048; 80053; 81001; 72148; J3490 ×2; J2765; J1170; J7030

== ENCOUNTER → 2018-03-11 | Outpatient (CLI) | payer MEDICAID ==
--- NOTE | 2018-03-11 17:18 | XCELERA REPORT ---
[address] [address] Lower Extremity Venous Evaluation Name: GURINDER SMART Age: 58 yrs Gender: Female : 1960 Patient Status: Outpatient Patient Location: Study Date: 03/11/2018 01:14 PM Procedure: Color flow and duplex imaging bilaterally of the veins of the lower extremities as well as the Common Femoral veins. Reason For Study: SOB Ordering Physician: ALMITA AZEVEDO Performed By: Connie Cesar Right Sided Venous Evaluation Abnormal vessel filling, echogenic content, lo compression or Colour flow from the Common Femoral to the Popliteal vein. Left Sided Venous Evaluation Normal vessel filling wall to wall, compression and augmentation as well as Colour flow down to the infrageniculate veins. Interpretation Summary Extensive, fresh looking DVT in the right lower extremity veins. : ALMITA AZEVEDO > Trav Becerra
== END ==
LOC: SP 13:01
PROVIDERS: ATTEND Internal Medicine
DX: M79.89 Other specified soft tissue disorders (principal); M79.605 Pain in left leg; M79.604 Pain in right leg
CPT/HCPCS: 93970